=== PATIENT | male | born 1955 | race Caucasian/White ===

== ENCOUNTER → 2016-05-29 | Outpatient (CLI) | payer OTHER ==
[~2016-05-29] MED LIST: ACET325T33 PO; FAMO-18 PO; LISI10TA2 PO; MEVA40 PO; NIT4 SL; calcium
== END | disposition home or self-care (01) ==
LOC: MERGE 09:56 → HKI 09:56
PROVIDERS: ATTEND Orthopaedic Surgery
DX: Z01.818 Encounter for other preprocedural examination (principal); M17.0 Bilateral primary osteoarthritis of knee; I10 Essential (primary) hypertension; E78.5 Hyperlipidemia, unspecified
CPT/HCPCS: G0463

== ENCOUNTER → 2016-06-01 | Outpatient (CLI) | payer OTHER ==
[~2016-06-01] MED LIST changes: +ASPI325T32 PO; +GABA100C PO; +HYDR-905 PO; +METO25TA7 PO; +PANT40TA4 PO; +TRAM50TA2 PO
--- NOTE | 2016-06-01 14:51 | RADRPT ---
PROCEDURE: Limited x-ray of both lower extremities. CLINICAL INDICATION: Bilateral leg pain. TECHNIQUE: Single frontal view of both lower extremities was obtained from the hips to the calves. COMPARISON: None. FINDINGS: There are mild to moderate degenerative changes of the hips with osteophytes and joint space narrowi ng. There are severe degenerative changes of both knees. IMPRESSION: 1. Mild to moderate degenerative changes of the hips. 2. Severe degenerative changes of both knees. RPTAT: QQ .Oswaldo Cole MD, Date Time Electronically viewed and signed by .Oswaldo Cole MD, on 06/01/2016 14:50 .R/
== END | disposition home or self-care (01) ==
LOC: MERGE 08:00 → HKI 13:07
PROVIDERS: ATTEND Orthopaedic Surgery
DX: M79.604 Pain in right leg (principal); M79.605 Pain in left leg
CPT/HCPCS: 77073

== ENCOUNTER 2016-06-09 09:30 | Inpatient (IN) | payer OTHER ==
[2016-05-29 13:11] VITALS: BMI 30.1
[2016-06-08 11:16] VITALS: BMI 30.8
[~2016-06-09] VITALS: Ht 165.1 cm; Wt 82.0 kg
[~2016-06-09 09:30] MED LIST changes: -ASPI325T32 PO; +BUPIVACAINE LIPOSOME/PF 266 MG/20 ML VIAL INFIL SCH; +CEFAZOLIN 2GM/50 ML (PMX) 50 ML X1 BEFORE INCISION IVPB ONE; +CELECOXIB 400 MG PO X1 DOSE PO ONE; +EXPAREL NOTE (BUPIVICAINE LIPOSOMAL) XX SCH; -GABA100C PO; -HYDR-905 PO; +LACTATED RINGER'S 1,000 ML IV ONE; -METO25TA7 PO; +PAIN COCKTAIL-CEFUROXIME IRR SCH; -PANT40TA4 PO; +PREGABALIN 300 MG PO X1 PO ONE; -TRAM50TA2 PO; +TRANEXAMIC ACID 820 MG in SOD CHLORIDE 0.9% 100 ML IVPB SCH; +TRANEXAMIC ACID 820 MG in SOD CHLORIDE 0.9% 91.8 ML IV ONE; +oxyCODONE (CR) 10 MG TAB [oxyCONTIN] X1 DOSE PO ONE; +traMADOL 50 MG TAB X 1 DOSE PO ONE
[2016-06-16] VITALS (19 sets, daily range): BP systolic 102–169; BP diastolic 45–84; PULSE 55–88; RESP 14–18; Ht 165.1 cm; Wt 82.0 kg
[2016-06-16] MEDS ORDERED: EXPAREL NOTE (BUPIVICAINE LIPOSOMAL) XX SCH (06:00)
[2016-06-16] MEDS ORDERED: oxyCODONE (CR) 10 MG TAB [oxyCONTIN] X1 DOSE PO SCH (06:00)
[2016-06-16] MEDS ORDERED: BUPIVACAINE LIPOSOME/PF 266 MG/20 ML VIAL INFIL SCH (06:00)
[2016-06-16] MEDS ORDERED: PREGABALIN 300 MG PO X1 PO SCH (06:00)
[2016-06-16] MEDS ORDERED: LACTATED RINGER'S 1,000 ML IV SCH (06:00)
[2016-06-16] MEDS ORDERED: traMADOL 50 MG TAB X 1 DOSE PO SCH (06:00)
[2016-06-16] MEDS ORDERED: PAIN COCKTAIL-CEFUROXIME IRR SCH ×7 (06:00)
[2016-06-16] MEDS ORDERED: TRANEXAMIC ACID 840 MG in SOD CHLORIDE 0.9% 100 ML IVPB SCH (06:00)
[2016-06-16] MEDS ORDERED: SOD CHLORIDE 0.9% IV SCH (06:00)
[2016-06-16] MEDS ORDERED: TRANEXAMIC ACID IV SCH (06:00)
[2016-06-16] MEDS ORDERED: CELECOXIB 400 MG PO X1 DOSE PO SCH (06:00)
[2016-06-16] MEDS ORDERED: CEFAZOLIN 2GM/50 ML (PMX) 50 ML X1 BEFORE INCISION IVPB SCH (06:00)
[2016-06-16] MEDS ORDERED: ETOMIDATE 20 MG INJ ONE (07:00)
--- NOTE | 2016-06-16 07:43 | PREOPHP ---
DATE OF ADMISSION: 06/16/2016 REASON FOR ADMISSION: The patient is scheduled to have surgery on his right knee for a total right knee arthroplasty. PREOPERATIVE VITAL SIGNS: Blood pressure 164/81, pulse 57, respirations 12, temperature 99.0. The patient's weight is 185.90 pounds. REVIEW OF SYSTEMS: MUSCULOSKELETAL: The patient upon presentation has no physical complaint with the exception of ongo ing right knee pain and swelling. CARDIOVASCULAR: Negative for any complaint. RESPIRATORY: Negative for any complaint. GASTROINTESTINAL: Negative for any complaint. PHYSICAL EXAMINATION: EYES: The patient has bilateral cataracts. MOUTH: No erythema, no exudate present. NECK: Supple without any lymphadenopathy. No JVD. LUNGS: Clear anteriorly and posteriorly. HEART: Regular rate and rhythm with S1, S2 without any gallop or murmur. ABDOMEN: Flat, nontender. No organomegaly or tenderness. EXTREMITIES: He has no peripheral edema. MUSCULOSKELETAL: He has right knee tenderness with moderate pain with range of motion. LABORATORY: The patient is awaiting lab results for CBC, BMP, PT, PTT, sedimentation rate and EKG. ASSESSMENT: Chronic right knee pain. PLAN: The patient is scheduled for a right knee total arthroplasty. At this time, patient is clear ed for surgery pending patient's lab results which were drawn on 06/02/2016. As noted, this patient is scheduled to have surgery to be performed by Dr. Pantera Al. Dictated By: PANTERA HOLDER/WILLIE Conf#: [id number] DID#: [id number]
[2016-06-16] MEDS ORDERED: POLYMYXIN B 500000 UNIT INJ ONE (15:09)
[2016-06-16] MEDS ORDERED: SODIUM CL BACTERIOSTATIC 30 ML INJ ONE (15:09)
[2016-06-16] MEDS ORDERED: VANCOMYCIN 1 GM INJ ONE (15:09)
[2016-06-16] MEDS ORDERED: GLYCOPYRROLATE 0.4 MG INJ ONE (15:11)
[2016-06-16] MEDS ORDERED: FENTAnyl 50 MCG/ML VIAL ONE (15:11)
[2016-06-16] MEDS ORDERED: LIDOCAINE 100 MG SYRINGE ONE (15:11)
[2016-06-16] MEDS ORDERED: MIDAZOLAM 1 MG/ML 2 ML INJ ONE (15:11)
[2016-06-16] MEDS ORDERED: NEOSTIGMINE 3 MG/3 ML SYRINGE ONE (15:11)
[2016-06-16] MEDS ORDERED: ROCURONIUM 50 MG INJ ONE (15:11)
[2016-06-16] MEDS ORDERED: PROPOFOL 100 ML ONE (15:11)
[2016-06-16] MEDS ORDERED: ONDANSETRON 4 MG INJ ONE (15:11)
[2016-06-16] MEDS ORDERED: DEXAMETHASONE 4 MG/ML 1 ML INJ ONE (15:13)
[2016-06-16] MEDS ORDERED: METO25TA7 PO (15:19)
--- NOTE | 2016-06-16 16:12 | HPN ---
Date/Time of Note Date/Time of Note DATE: 06/16/16 TIME: 16:11 Interval H&P Admission Note Pt. seen H&P reviewed: No system changes No change from H&P on 06/02/16 by Donis Jarrett ERIK N. MD Jun 16, 2016 16:12
[2016-06-16] MEDS ORDERED: TRIMETHOBENZAMIDE 100 MG/ML VIAL IM PRN (17:00)
[2016-06-16] MEDS ORDERED: HYDROmorphONE (0.2 MG/ML) 10ML SYG IV PRN ×3 (17:00)
[2016-06-16] MEDS ORDERED: DIPHENHYDRAMINE 50 MG INJ IV PRN (17:00)
[2016-06-16] MEDS ORDERED: MEPERIDINE 25 MG INJ IV PRN (17:00)
[2016-06-16] MEDS ORDERED: LABETALOL HCL 20MG INJ IV PRN (17:00)
[2016-06-16] MEDS ORDERED: EPHEDrine SULFATE 50 MG/5 ML SYG IV PRN (17:00)
[2016-06-16] MEDS ORDERED: ONDANSETRON 4 MG INJ IV PRN ×2 (17:00→19:30)
[2016-06-16] MEDS ORDERED: FENTAnyl 50 MCG/ML VIAL IV PRN ×3 (17:00)
[2016-06-16] MEDS ORDERED: hydrALAzine 20 MG INJ IV PRN (17:00)
[2016-06-16] MEDS ORDERED: MIDAZOLAM 1 MG/ML 2 ML INJ IV PRN (17:00)
[2016-06-16] MEDS ORDERED: BACITRACIN 50000 UNITS INJ ONE (17:03)
--- NOTE | 2016-06-16 19:16 | OPPN ---
Date/Time of Note Date/Time of Note DATE: 06/16/16 TIME: 19:14 Operative/Procedure Note Dictation # [id number] Pre-Operative Diagnosis Right Knee OA Post-Operative Diagnosis Same Procedure Right TKA Surgeon: POOL ARZOLA MD Sales Department Supervisor: ORVILLE CUMMINS PA-C Anesthesiologist: Cameron Concepcion M.D. Findings Severe OA Blood Usage/Administration None Implants/Grafts Depuy Attune TKA Estimated blood loss: 50 - 100 ml's Drains Hemovac x 1 Specimens Bone and soft tissue Complications: None Anesthesia type: spinal POOL ARZOLA MD Jun 16, 2016 19:16
--- NOTE | 2016-06-16 19:22 | PN ---
Date/Time of Note Date/Time of Note DATE: 06/16/16 TIME: 19:19 Assessment/Plan Lines/Catheters IV Catheter Type (from Nrsg): Peripheral IV Assessment/Plan Assessment/Plan Stable in PACU, s/p right TKA -cont abx -pain meds -ASA/SCDs for DVT prophylaxis -OOB with PT -check AM labs -monitor drain -d/c perez in AM XR of the right knee is pending at this time Subjective 24 Hr Interval Summary Doing well in PACU. Denies pain. Moving all extremities. Exam/Review of Systems Vital Signs Vitals Vital Signs Date Time Temp Pulse Resp B/P Pulse Ox O2 Delivery O2 Flow Rate FiO2 06/16/16 19:17 98.5 06/16/16 15:25 58 18 169/84 98 Room Air Exam Free Text/Dictation Dressing dry Incision clean, dry, and intact without redness or drainage Thigh soft 5/5 Quadriceps, Tibialis Anterior, EHL, Gastroc, Soleus, Peroneals Normal sensation Palpable DT/PT, CR <2 sec No distal edema ORVILLE CUMMINS PA-C Jun 16, 2016 19:22
[2016-06-16] MEDS ORDERED: HYDROmorphONE 1 MG/ML SYG IV PRN (19:30)
[2016-06-16] MEDS ORDERED: NACL 0.9% 3 ML SYG IV SCH (19:30)
[2016-06-16] MEDS ORDERED: oxyCODONE 5 MG TAB PO PRN ×2 (19:30)
[2016-06-16] MEDS ORDERED: NA PHOSPHATE/BIPHOS 133 ML ENEMA PR PRN (19:30)
[2016-06-16] MEDS ORDERED: ASPIRIN (EC) 325 MG TAB PO ONE (19:30)
[2016-06-16] MEDS ORDERED: MAGNESIUM HYDROXIDE 30ML CUP PO PRN (19:30)
[2016-06-16] MEDS ORDERED: DIPHENHYDRAMINE 25 MG CAP PO PRN (19:30)
[2016-06-16] MEDS ORDERED: BISACODYL 10 MG SUPP PR PRN (19:30)
[2016-06-16] MEDS: CEFAZOLIN 2 GM/50 ML (PMX) 50 ML IVPB SCH (19:37)
[2016-06-16 19:50] LABS: POTASSIUM 4.5 mmol/L (3.5-5.1)
[2016-06-16 19:54] LABS: CALCIUM 7.2 mg/dl (8.4-10.2); CREATININE 0.87 mg/dl (0.61-1.24)
[2016-06-16 20:02] LABS: HEMATOCRIT 36.9 % (42.0-52.0); HEMOGLOBIN 12.5 g/dl (14.0-18.0)
--- NOTE | 2016-06-16 20:03 | OPR ---
DATE OF OPERATION: 06/16/2016 DATE: 06/16/2016 PREOPERATIVE DIAGNOSIS: Right knee osteoarthritis. POSTOPERATIVE DIAGNOSIS: Right knee osteoarthritis. OPERATION PERFORMED: Right total knee arthroplasty. SURGEON: Pool Al MD TREE FELLER: ZEKE Smith COMPONENTS USED: DePuy Attune size 8 femoral component, size 7 tibia, 5 mm polyethylene insert, and a 35 patella button. ANESTHESIA: Spinal, plus general endotracheal intubation, plus periarticular injection. ANESTHESIOLOGIST: Cameron Concepcion MD TOURNIQUET TIME: 77 minutes. ESTIMATED BLOOD LOSS: 50 mL. INTRAVENOUS FLUIDS: Crystalloid 3 L. SPECIMENS: Bone and soft tissue. DRAINS: Hemovac x1. COMPLICATIONS: None. DISPOSITION: Patient tolerated the procedure well and was taken to the recovery room in stable [facility]. INDICATIONS: The patient is a 60-year-old gentleman who has had progressive worsening pain in the r ight knee with radiographic evidence of severe osteoarthritis, with a marked varus deformity. He snider s failed nonsurgical means of treatment to control his pain, including activity modifications, pain medications, intra-articular injections and ambulatory assist devices. Despite these measures, he h as had worsening pain and I felt he would benefit from a total knee arthroplasty. I felt the patient would benefit from a total knee arthroplasty. The risks, benefits, and alternatives of the procedure were explained in detail to the patient. I ex plained the risks of the surgery to include but not be limited to, bleeding and possible need for bl ood transfusion; infection; pain; stiffness; neurovascular injury with possible numbness, weakness, and/or paralysis anywhere from the knee down to the toes; fracture; instability; dislocation; wear a nd/or loosening of the prosthesis and possible need for future revision; blood clots; pulmonary embo lism; and anesthetic complications such as heart attack, stroke, GI bleed, pneumonia, and/or . Ample time was allowed for the patient to ask questions, all of which were addressed and answered. T he patient understood the risks involved and wished to proceed. Informed consent was signed prior to the procedure. PROCEDURE: The patient's right knee was initialed with a marking pen in the preoperative area to id entify the correct operative site. The patient was brought to the operating room and transferred fro [facility] to the operating table where a spinal anesthetic was administered. The patient was then anesthetized and intubated. A Powell catheter was placed. A timeout was performed to confir m that the right leg was the correct operative site. The patient was given 2 g of Ancef within one h our prior to the procedure. A tourniquet was placed on the operative proximal thigh. The operative k nee and lower extremity were prepped and draped in the usual sterile fashion. The operative lower ex tremity was elevated and exsanguinated with an Esmarch tourniquet. The proximal thigh tourniquet was inflated to 300 mmHg. The knee was flexed. A midline incision was made and carried down through the subcutaneous tissue an d fat with sharp dissection. Limited medial and lateral flaps were raised. A median parapatellar art hrotomy approach was performed. Synovial fluid was normal in color and consistency. The patella was everted and the knee flexed. There were severe tricompartmental osteoarthritic changes noted. A medi al release was performed at the joint line to the midcoronal plane. The ACL and PCL and remnants of the menisci were excised. The stepped drill was used to open up the femoral canal which was irrigate d and sucked dry. The intramedullary guide arsalan was passed up the femur, and the distal cutting block was pinned into place for a 6-degree valgus cut, taking 10 mm of bone off distally. The oscillating saw was used to make the cut. The tibia was subluxed anteriorly. The tibial cutoff jig was placed over the center of the talus dis tally and over the junction of the medial and middle third of the tibial tubercle proximally. The gu sukhwinder was pinned into place and the oscillating saw was used to make the cut. The tibia was sized. The extension gap was checked and accommodated a 5-mm spacer block with the knee in full extension. The re was no varus or valgus instability. At this point, the femur was sized with the posterior referencing guide. Two holes were drilled in 3 degrees of external rotation. The two holes were in line with the transepicondylar axis, perpendicu lar to [place]'s line, and in line with the tibial cutoff jig brought up with the knee flexed 90 d egrees and tensed with 2 lamina spreaders, suggesting the femoral rotation was correct. The four-in- one cutting block was pinned into place. The anterior and posterior cuts and chamfer cuts were made with the oscillating saw. The flexion gap was checked and accommodated the 5-mm spacer block at 90 d egrees. There was no varus or valgus instability, suggesting the flexion and extension gaps were now equal. The central box was cut out on the femur. The tibia was drilled and punched in proper rotation. Tria l components were placed into position with a trial insert. The patella was cut from 27 mm down to 1 6 mm and sized. Three holes were drilled and the trial button placed in position. With all the trial s now in place, the knee was taken through range of motion and came to full extension as evidenced b y the fact that with the foot on my abdomen and axial loading, there was no tendency for the knee to flex. The knee was able to be flexed to 125 degrees with good patellar tracking with no lateral til t or subluxation. At this point, I was satisfied with the overall range of motion, stability, and pa tellar tracking. The trials were removed. The real components were opened. Two bags of cement were mixed, one with an d one without premixed antibiotic. The knee was irrigated with antibiotic saline and sucked dry. Onc e the cement was in a doughy stage, the real components were cemented into place. The knee was held in full extension, and the patellar component was held with a patellar clamp. All excess cement was removed with curettes. As the cement was hardening, the synovial/capsular layer was infiltrated with a mixture of 150 mg of 0.5% Bupivacaine, 8 mg of Duramorph, 300 mcg of epinephrine, 30 mg of [place] l, 100 mcg of clonidine, 750 mg of cefuroxime and 86 mL of normal saline, followed by an injection o f 266 mg of liposomal Bupivacaine. A Hemovac drain was placed in the deep portion of the wound and brought out the anterolateral thigh. Once the cement was completely hardened, the trial liner was removed, and the real insert was opene d. The tourniquet was let down, and there was good hemostasis. The knee was then irrigated with a mi xture of betadine/saline and then antibiotic saline with pulsatile lavage. The real insert was impac amanda into the tibia and reduced onto to the femur. The arthrotomy was closed with a few interrupted #1 Ethibond in a [id number] fashion, and then closed in a watertight fashion with a running #2 Stratafix suture. Knee flexion was checked against gravity and came to 125 degrees. The subcutaneous layer was irrigated and closed with 2-0 Stratafix, and then 3-0 Stratafix and then Prineo Dermabond on the skin. The wound was covered with an occlusi ve dressing, and secured with cast padding and a bias dressing. The drain was secured with 3-0 nylon . The sponge and needle counts were correct at the end of the case. The patient was then awakened, ext ubated, and taken to the recovery room in stable condition. Dictated By: POOL HOLDER/NTS Conf#: [id number] DID#: [id number]
[2016-06-16] MEDS: PREGABALIN 25 MG CAP PO SCH (21:51)
[2016-06-16] MEDS: DOCUSATE SODIUM 100 MG CAP PO SCH (21:51)
[2016-06-16] MEDS: LACTATED RINGER'S 1,000 ML IV SCH (21:52)
--- NOTE | 2016-06-16 23:11 | RADRPT ---
PROCEDURE: Right knee radiographs. CLINICAL INDICATION: Right knee pain. Postop. TECHNIQUE: Two views. Frontal and lateral. COMPARISON: 06/01/2016. FINDINGS: There is no fracture or dislocation. Anterior surgical drain is noted. There is a total right knee arthroplasty which appears satisfactory. There is no lytic or blastic lesion. There is no joint effusion. IMPRESSION: 1. Satisfactory postoperative appearance of the right knee. RPTAT: QQ .Oswaldo Cole MD, MD Date Time Electronically viewed and signed by .Oswaldo Cole MD, on 06/16/2016 23:11 .R/
[2016-06-16] MEDS: ACETAMINOPHEN 1000MG/100ML IV 100 ML IVPB SCH (23:55)
[2016-06-17 00:10] VITALS: BP 149/69
[2016-06-17] MEDS: LACTATED RINGER'S 1,000 ML IV SCH ×3 (03:14→19:14)
[2016-06-17] MEDS: CEFAZOLIN 2 GM/50 ML (PMX) 50 ML IVPB SCH ×2 (03:50→12:06)
[2016-06-17] MEDS: PANTOPRAZOLE (EC) 40 MG TAB PO SCH ×2 (05:06→18:22)
[2016-06-17] MEDS: traMADol 50 MG TAB PO SCH ×4 (05:06→18:22)
[2016-06-17] MEDS: ACETAMINOPHEN 1000MG/100ML IV 100 ML IVPB SCH ×3 (05:06→18:22)
[2016-06-17 05:13] LABS: POTASSIUM 4.6 mmol/L (3.5-5.1)
[2016-06-17 05:16] LABS: CREATININE 0.75 mg/dl (0.61-1.24)
[2016-06-17 05:17] LABS: CALCIUM 7.2 mg/dl (8.4-10.2); HEMATOCRIT 35.1 % (42.0-52.0); HEMOGLOBIN 12.2 g/dl (14.0-18.0)
--- NOTE | 2016-06-17 05:52 | CONS ---
Date/Time of Note Date/Time of Note DATE: 06/17/16 TIME: 05:41 Assessment/Plan Assessment/Plan Additional Assessment/Plan IMPRESSION 1. Right Knee OA s/p TKA 2. History of Hypertension. 3. Leukocytosis: likely stress induced. monitor closely PLAN Pain mgmt Cont home meds with adjustment as needed. Toprol XL with parameters given bradycardia f/u ortho recs Consultation Date/Type/Reason Admit Date/Time Jun 16, 2016 at 14:14 Hx of Present Illness This is a 60 yo male with hx of HTN, ?GERD and Right knee OA who is admitted for total knee arthroplasty, which he underwent already. Consult was placed for medical mgmt. except for occasional pain, pt does not have any complaints. He denied CP, SOB, f/c, N/V. . Past Medical History Medical History: hypertension, other (Right knee OA) Past Surgical History Past Surgical Hx: other (Left knee meniscus tear. Right 3rd and 4th finger amputation) Social History Alcohol Use: none Smoking Status: Never smoker Drug Use: none Exam/Review of Systems Vital Signs Vitals Vital Signs Date Time Temp Pulse Resp B/P Pulse Ox O2 Delivery O2 Flow Rate FiO2 06/17/16 00:10 98.2 55 149/69 06/16/16 23:00 16 100 Nasal Cannula 2.0 Intake and Output 06/16/16 06/16/16 06/17/16 15:00 23:00 07:00 Intake Total 3000 ml Output Total 320 ml Balance 2680 ml Exam Constitutional: alert, oriented, well developed Head: normocephalic Eyes: EOMI, PERRL Respiratory: clear to auscultation, normal air movement Cardiovascular: nl pulses, other (bradycardic with regular rhythm) Gastrointestinal: non-tender, soft Extremities: other (right LE covered. Old amputation of right 3rd and 4th finger) Results Result Diagram: 06/16/16 19306/16/161929 Results 24 hrs Laboratory Tests Test 06/16/16 19:30 Anion Gap 16 Blood Urea Nitrogen 12 Calcium Level 7.2 L Carbon Dioxide Level 25 Chloride Level 102 Creatinine 0.87 Glucose Level 147 Hematocrit 36.9 L Hemoglobin 12.5 L Potassium Level 4.5 Sodium Level 138 Medications Medications Current Medications Miscellaneous Information 1 ea NOTE XX ; Start 06/16/16 at 06:00; Stop 06/19/16 at 05:59 Lisinopril (Zestril) 10 mg DAILY PO ; Start 06/17/16 at 09:00 Metoprolol Succinate 25 mg 25 mg DAILY PO ; Start 06/17/16 at 09:00 Lactated Ringer's (Lr) 1,000 ml @ 125 mls/hr Q8H IV Last administered on 21:52; Admin Dose 125 MLS/HR; Start 06/16/16 at 19:14 Celecoxib 200 mg 200 mg DAILY PO ; Start 06/17/16 at 09:00 Acetaminophen (Ofirmev 1000mg/ 100ml Iv) 100 ml @ 400 mls/hr Q6 IVPB Last administered on 06/17/16 05:06; Admin Dose 400 MLS/HR; Start 06/17/16 at 00:00; Stop 06/17/16 at 23:59 Tramadol HCl (Ultram) 50 mg Q6 PO Last administered on 06/17/16 05:06; Admin Dose 50 MG; Start 06/16/16 at 18:00; Stop 06/19/16 at 17:59 Oxycodone HCl (Roxicodone) 5 mg Q4H PRN PO PAIN LEVEL 1-3; Start 06/16/16 at 19 :30 Oxycodone HCl (Roxicodone) 10 mg Q4H PRN PO PAIN LEVEL 4-7; Start 06/16/16 at 19:30 Hydromorphone HCl 1 mg 1 mg Q3H PRN IV PAIN LEVEL 8-10; Start 06/16/16 at 19:30 Cefazolin Sodium/ Dextrose (Ancef 2 Gm/50 ml (Pmx)) 50 ml @ 100 mls/hr Q8H IVPB Last administered on 06/17/16 03:50; Admin Dose 100 MLS/HR; Start at 19:30; Stop 06/17/16 at 11:59 Ondansetron HCl (Zofran Inj) 4 mg Q6H PRN IV NAUSEA AND/OR VOMITING; Start at 19:30 Bisacodyl (Dulcolax Supp) 10 mg Q12H PRN PA CONSTIPATION; Start 06/16/16 at 19: 30 Magnesium Hydroxide (Milk Of Mag) 30 ml BID PRN PO CONSTIPATION; Start 1/31/ 17 at 19:30 Sodium Biphosphate/ Sodium Phosphate (Fleet Enema) 133 ml DAILY PRN PA CONSTIPATION; Start 06/16/16 at 19:30 Docusate Sodium (Colace) 100 mg BID PO Last administered on 06/16/16 21:51; Admin Dose 100 MG; Start 06/16/16 at 21:00 Diphenhydramine HCl (Benadryl) 25 mg Q6H PRN PO PRURITUS; Start 06/16/16 at 19: 30 Aspirin (Ecotrin) 325 mg BID PO ; Start 06/17/16 at 09:00 Pantoprazole (Protonix Tab) 40 mg BID@06,18 PO Last administered on 06/17/16 05 :06; Admin Dose 40 MG; Start 06/17/16 at 06:00 Pregabalin (Lyrica) 50 mg BID PO Last administered on 06/16/16 21:51; Admin Dose 50 MG; Start 06/16/16 at 21:00 JOSELINE ROSARIO MD Jun 17, 2016 05:51
[2016-06-17 06:56] LABS: ADD UMIC NO; URINE BILIRUBIN (Dip) NEGATIVE (NEGATIVE); URINE BLOOD (Dip) NEGATIVE (NEGATIVE); URINE COLOR LT. YELLOW (YELLOW); URINE GLUCOSE (Dip) NEGATIVE (NEGATIVE); URINE KETONES (Dip) NEGATIVE (NEGATIVE); URINE LEUKOCYTE ESTERASE (Dip) NEGATIVE (NEGATIVE); URINE NITRITE (Dip) NEGATIVE (NEGATIVE); URINE TOTAL PROTEIN (Dip) NEGATIVE (NEGATIVE); URINE UROBILINOGEN (Dip) 0.2 E.U./dL (0.1-1.0)
[2016-06-17 08:06] VITALS: BP 102/62; RESP 18
[2016-06-17] MEDS: LISINOPRIL 10 MG TAB PO SCH ×2 (09:00→12:19)
[2016-06-17] MEDS: METOPROLOL (XL) 25 MG TAB PO SCH ×2 (09:00→12:20)
--- NOTE | 2016-06-17 09:05 | PN ---
Date/Time of Note Date/Time of Note DATE: 06/17/16 TIME: 09:04 Assessment/Plan Lines/Catheters IV Catheter Type (from Nrsg): Peripheral IV Powell in Place (from Nrsg): Yes Assessment/Plan Assessment/Plan Stable POD #1 s/p right TKA -d/c abx -pain meds -ASA/SCDs for DVT prophylaxis -OOB with PT -drain removed today -check AM labs -encourage incentive spirometry -d/c planning. Will likely go home tomorrow Subjective 24 Hr Interval Summary Doing well. No acute overnight events. Pain minimal. Moderate drainage output. Did not start PT yet. Exam/Review of Systems Vital Signs Vitals Vital Signs Date Time Temp Pulse Resp B/P Pulse Ox O2 Delivery O2 Flow Rate FiO2 06/17/16 08:06 97.9 56 18 102/62 97 06/16/16 23:00 Nasal Cannula 2.0 Intake and Output 06/16/16 06/16/16 06/17/16 15:00 23:00 07:00 Intake Total 3000 ml 880 ml Output Total 320 ml 2620 ml Balance 2680 ml -1740 ml Exam Free Text/Dictation Hemovac: 440cc Dressing dry Incision clean, dry, and intact without redness or drainage Thigh soft 5/5 Quadriceps, Tibialis Anterior, EHL, Gastroc, Soleus, Peroneals Normal sensation Palpable DT/PT, CR <2 sec No distal edema Results Result Diagram: 06/17/16 04306/17/16 043 ORVILLE CUMMINS PA-C Jun 17, 2016 09:05
[2016-06-17] MEDS: ASPIRIN (EC) 325 MG TAB PO SCH ×2 (09:09→20:35)
[2016-06-17] MEDS: CELECOXIB 200 MG CAP PO SCH (09:09)
[2016-06-17] MEDS: PREGABALIN 25 MG CAP PO SCH ×2 (09:09→20:35)
[2016-06-17] MEDS: DOCUSATE SODIUM 100 MG CAP PO SCH ×2 (09:09→20:35)
--- NOTE | 2016-06-17 15:43 | PDOCDIS ---
Discharge Instructions DIAGNOSIS Discharge Diagnosis: s/p right TKA CONDITION Patient Condition: Good HOME CARE INSTRUCTIONS: Diet Instructions: Regular ACTIVITY: Activity Restrictions: Slowly Increase Activity Rest between Activity Avoid heavy lifting Do not operate Machinery Do not operate Power Tool Avoid Heavy Housework Keep Limb Elevated FOLLOW UP/APPOINTMENTS Appointments follow up with Dr. Al on 06/26/16 OTHER ORDERS: Other Orders: S/P TKA Physical Therapy: Three times per week at home x 2 weeks WB STATUS: WBAT 1. Strengthening exercises for both upper and un-operated lower extremities. 2. Gait training with front wheeled walker 3. Active range of motion exercises to operative knee. 4. When not working on knee range of motion exercises, distal towel roll under operative ankle/distal calf to promote full extension. 5. DO NOT PUT ANYTHING BEHIND OPERATIVE KNEE!!! 6. Quadriceps and hamstring strengthening. 7. May switch to cane in contra lateral hand 6 weeks after surgery. 8. Physical Therapy can open case if nursing is not available. 9. Use Ice Machine as instructed from date of surgery while at rest 3X/day. 10. Patient requires mobile SCDs to reduce risk of developing DVT following TKA. Patient will use the mobile SCDs for 30 days postoperatively. Bathing assistance by home health aide twice weekly if Medicare patient. Occupational Therapy: Evaluation for assistive devices and ADL training. Wound Care: Keep incision dry & covered with Tegaderm until first visit with Dr. Al Anticoagulation Orders: Enteric Coated Aspirin 325 mg po bid x 6 weeks from date of surgery Follow-up:Call for an appointment with Dr. Al in 1 week after discharged from hospital at DME Orders: JACINTA, 3-in-1 Commode, Polar ice machine, Mobile SCDs ORVILLE CUMMINS PA-C Jun 17, 2016 15:43
[2016-06-17] MEDS ORDERED: HYDR-905 PO (15:45)
[2016-06-17] MEDS ORDERED: ASPI325T32 PO (15:45)
[2016-06-17] MEDS ORDERED: GABA100C PO (15:45)
[2016-06-17] MEDS ORDERED: TRAM50TA2 PO (15:45)
[2016-06-17] MEDS ORDERED: PANT40TA4 PO (15:45)
[2016-06-17 19:40] VITALS: BP 122/59; RESP 18
[2016-06-18] MEDS: LACTATED RINGER'S 1,000 ML IV SCH ×2 (03:14→11:14)
[2016-06-18] MEDS: PANTOPRAZOLE (EC) 40 MG TAB PO SCH (05:06)
[2016-06-18] MEDS: traMADol 50 MG TAB PO SCH ×3 (05:06→13:14)
[2016-06-18 05:15] LABS: HEMATOCRIT 30.8 % (42.0-52.0); HEMOGLOBIN 10.5 g/dl (14.0-18.0)
[2016-06-18 06:08] LABS: POTASSIUM 4.4 mmol/L (3.5-5.1)
[2016-06-18 06:10] LABS: CREATININE 0.88 mg/dl (0.61-1.24)
[2016-06-18 06:11] LABS: CALCIUM 7.3 mg/dl (8.4-10.2)
[2016-06-18 06:37] VITALS: BP 110/65; PULSE 58; RESP 18
[2016-06-18 07:44] VITALS: BP 124/58; RESP 18
[2016-06-18] MEDS: ASPIRIN (EC) 325 MG TAB PO SCH (10:17)
[2016-06-18] MEDS: DOCUSATE SODIUM 100 MG CAP PO SCH (10:17)
[2016-06-18] MEDS: CELECOXIB 200 MG CAP PO SCH (10:20)
[2016-06-18] MEDS: METOPROLOL (XL) 25 MG TAB PO SCH (10:20)
[2016-06-18] MEDS: LISINOPRIL 10 MG TAB PO SCH (10:21)
[2016-06-18] MEDS: PREGABALIN 25 MG CAP PO SCH (10:33)
--- NOTE | 2016-06-18 11:07 | PN ---
Date/Time of Note Date/Time of Note DATE: 06/18/16 TIME: 11:05 Assessment/Plan Lines/Catheters IV Catheter Type (from Nrsg): Saline Lock Powell in Place (from Nrsg): No Assessment/Plan Assessment/Plan Stable POD #2, s/p right TKA -pain meds -ASA/SCDs -OOB with PT -d/c home today -follow up in the office with Dr. Al on 06/26/16 Subjective 24 Hr Interval Summary Doing well. No acute overnight events. Denies significant pain. Would like to go home today. Exam/Review of Systems Vital Signs Vitals Vital Signs Date Time Temp Pulse Resp B/P Pulse Ox O2 Delivery O2 Flow Rate FiO2 06/18/16 07:44 98.2 60 18 124/58 94 06/18/16 06:37 Room Air 06/17/16 08:00 2.0 Intake and Output 06/17/16 06/17/16 06/18/16 15:00 23:00 07:00 Intake Total 1500 ml 3330 ml 800 ml Output Total 1300 ml 1380 ml Balance 1500 ml 2030 ml -580 ml Exam Free Text/Dictation Dressing dry Incision clean, dry, and intact without redness or drainage Thigh soft 5/5 Quadriceps, Tibialis Anterior, EHL, Gastroc, Soleus, Peroneals Normal sensation Palpable DT/PT, CR <2 sec No distal edema Results Result Diagram: 06/18/16 0425 06/18/16 0425 ORVILLE CUMMINS PA-C Jun 18, 2016 11:07
--- NOTE | 2016-06-19 08:45 | DS ---
DATE OF ADMISSION: 06/16/2016 DATE OF DISCHARGE: 06/18/2016 CONDITION ON DISCHARGE: Stable. ADMITTING DIAGNOSIS: Right knee osteoarthritis. DISCHARGE DIAGNOSIS: Status post right total knee arthroplasty. PROCEDURE PERFORMED: Right total knee arthroplasty. HOSPITAL COURSE: This is a 60-year-old male who was seen in the clinic initially complaining of rig ht knee pain. He had previously undergone conservative modalities unsuccessfully, and it was though t he would benefit from a right total knee arthroplasty. On 06/16/2016, the patient was admitted an d taken to the operating room where he underwent a right total knee arthroplasty. There were no int raoperative complications. The patient tolerated the procedure well. He was taken to the recovery room in stable condition. Pain was well controlled with oral pain medication. He was started on as pirin and SCDs for DVT prophylaxis. He remained hemodynamically stable and neurovascularly intact t hroughout his hospital stay. On postoperative day 1, he began physical therapy and continued to delilah e progress. On postoperative day 2, it was deemed that he was stable for discharge home. Prior to discharge, the incision was inspected and noted to be clean, dry, and intact. Dressing changes were done prior to the patient going home. LABORATORY ANALYSIS UPON DISCHARGE: Hemoglobin 10.5, hematocrit 30.8. Chemistry panel was within n ormal limits. DISCHARGE MEDICATIONS: 1. Tramadol 50 mg. 2. [place] 7.5/325 mg. 3. Aspirin 325 mg. 4. Protonix 40 mg. Additionally, the patient is to resume all his normal home medications. DISCHARGE INSTRUCTIONS: The patient will be discharged home in stable condition. He is to resume a normal diet. Activities include weightbearing as tolerated on the right lower extremity. He is to begin physical therapy with home health. He will be discharged with the medications noted above. Additionally, he is to resume all of his normal home medications. The patient is to call the office or return to the emergency room for any concerns including increased redness, swelling, drainage, f ever, or any concerns regarding the operation or site of incision. FOLLOWUP: The patient is to follow up with Dr. Al in the office on 06/26/2016. Dictated By: ORVILLE ALANIS for POOL MAZARIEGOS/WILLIE Conf#: [id number] [facility]#: [id number]
== END 2016-06-18 18:10 | disposition home or self-care (01) | DRG 470 ==
LOC: MERGE 12:54 → REC 06-16 14:14 → MS1 06-16 20:20
PROVIDERS: ADMIT Orthopaedic Surgery; ATTEND Orthopaedic Surgery
PROC: 0SRC0J9 Replacement of Right Knee Joint with Synthetic Substitute, Cemented, Open Approach (ICD-10-PCS; principal; 2016-06-16 16:30)
DX: M17.11 Unilateral primary osteoarthritis, right knee (principal); I10 Essential (primary) hypertension; D72.829 Elevated white blood cell count, unspecified; Z89.021 Acquired absence of right finger(s)
CPT/HCPCS: 73560; 80048; 81003; 85014; 85018; 86850; 86900; 86901; 86920; 87081; 87086; 88304; 88311; 97110; 97116; 97162; 97167; 97530; Z7610; C1776; C9290; J0131; J0171; J0690; J0697; J0735; J1100; J1170; J1885; J2001; J2250; J2274; J2405; J2710; J3010; J3370; J7120

== ENCOUNTER 2016-06-26 11:50 | Emergency (ER) | payer OTHER ==
[~2016-06-26] VITALS: Wt 81.8 kg
--- NOTE | 2016-06-26 11:56 | QN ---
Documentation Comment Patient chief complaint is for leg pain and he was sent to rule out DVT. The patient had a medical screening exam which is initiated. I ordered a right lower extremity DVT after discussion with my triage nurse regarding his symptoms. TATYANA CORONA MD Jun 26, 2016 11:56
--- NOTE | 2016-06-26 13:05 | RADRPT ---
PROCEDURE: Ultrasound of the right lower extremity venous system. CLINICAL INDICATION: Right leg pain and swelling, deep venous thrombosis TECHNIQUE: Bowen scale with and without compression, color doppler, spectral doppler of the venous system of the right lower extremity was performed. Venous augmentation maneuvers were utilized. COMPARISON: No prior studies are available for comparison. FINDINGS: Common femoral vein: Patent. Superficial femoral vein: Patent. Popliteal vein: Patent. Calf veins: Patent. No soft tissue abnormalities are identified. IMPRESSION: No evidence of a deep vein thrombosis within the right lower extremity. RPTAT: AADD .Jamie Lilly MD, MD Date Time Electronically viewed and signed by .Jamie Lilly MD, on 06/26/2016 13:05 .B/
--- NOTE | 2016-06-26 15:33 | ERD ---
ER Documentation Chief Complaint Date/Time DATE: 06/26/16 TIME: 15:28 Chief Complaint R LEG PAIN R/O DVT HPI Patient is a 60-year-old male with hypertension who presents with right-sided leg swelling. The patient had right-sided knee surgery on June 16 of this year. The patient has no fevers. The patient had right-sided leg swelling that started after surgery. The patient was seen by Dr. Schulz today and was sent to the ER for ultrasound to rule out DVT. There is no fevers. There is no warmth to touch. There is no pus from the wound. ROS All systems reviewed and are negative except as per history of present illness. Medications Home Meds Active Scripts Gabapentin* (Neurontin*) 100 Mg Capsule, 100 MG PO TID, #90 CAP Prov:ORVILLE CUMMINS PA-C 06/17/16 Hydrocodone/Acetaminophen ([place] 7.5-325 Tablet) 1 Each Tablet, 1 EACH PO Q6 Y for PAIN LEVEL 6-10, #60 TAB Prov:ORVILLE CUMMINS PA-C 06/17/16 Tramadol HCl (Tramadol HCl) 50 Mg Tablet, 50 MG PO Q6 for 30 Days, #60 TAB Prov:ORVILLE CUMMINS PA-C 06/17/16 Pantoprazole* (Pantoprazole*) 40 Mg Tablet., 40 MG PO BID@06,18 for 30 Days, # 60 Prov:ORVILLE CUMMINS PA-C 06/17/16 Aspirin (Aspir-Alyssia) 325 Mg Tablet., 325 MG PO BID for 42 Days, #84 Prov:ORVILLE CUMMINS PA-C 06/17/16 Reported Medications Metoprolol Succinate* (Toprol XL*) 25 Mg Tab.sr.24h, 25 MG PO DAILY, #30 TAB 06/16/16 [calcium] No Conflict Check, HS 12/24/14 Lisinopril* (Lisinopril*) 10 Mg Tablet, 10 MG PO DAILY, TAB 12/24/14 Allergies Allergies: Coded Allergies: No Known Allergy (Unverified , 06/16/16) PMhx/Soc History of Surgery: Yes (LEFT KNEE MENISCUS TEAR, R MIDDLE FINGER AND RING FINGER AMPUTATION, MEDINA. S) Anesthesia Reaction: No Hx Neurological Disorder: No Hx Respiratory Disorders: No Hx Cardiac Disorders: Yes (HTN) Hx Psychiatric Problems: No Hx Miscellaneous Medical Probl: Yes (HTN, leukocytosis, ?GERD) Hx Alcohol Use: No Hx Substance Use: No Hx Tobacco Use: No Smoking Status: Never smoker FmHx Family History: No diabetes Physical Exam Vitals Vital Signs Date Time Temp Pulse Resp B/P Pulse Ox O2 Delivery O2 Flow Rate FiO2 06/26/16 11:53 98.0 75 18 201/84 99 Physical Exam Const: No acute distress Head: Atraumatic Eyes: Normal Conjunctiva ENT: Normal External Ears, Nose and Mouth. Neck: Full range of motion..~ No meningismus. Resp: Clear to auscultation bilaterally Cardio: Regular rate and rhythm, no murmurs Abd: Soft, non tender, non distended. Normal bowel sounds Skin: Right knee incision is clean, dry, and intact Back: No midline or flank tenderness Ext: Right lower extremity edema Neur: Awake and alert Psych: Normal Mood and Affect Procedures/MDM Ultrasound negative for DVT per radiology. Patient is a 60-year-old male with hypertension who presents with right-sided leg swelling. The patient had a recent surgery. Ultrasound is negative for DVT. I spoke with Dr. Schulz to give him the results of the negative ultrasound. The patient will be discharged and can return for any worsening symptoms. There is no sign of infection at this time. I doubt DVT. The patient could return for any worsening symptoms. Departure Diagnosis: Primary Impression: Leg swelling Condition: Fair Patient Instructions: Peripheral Edema, Unilateral Referrals: POOL ARZOLA MD Additional Instructions: Specialist:Usted tiene vinicius condicin mdica que requiere que jovan a un especialista dentro de los prximos 1-2 doshi.POR FAVOR,CON PANDA SEGUIMIENTO DE PRIMARIA PHSICIAN refferal. SI USTED NO TIENE UN MDICO GENERAL Y / O USTED NO PUEDE PAGAR mira a un mdico,los siguientes jara RECURSOS sido suministrado a usted. ES PANDA RESPONSABILIDAD PARA SER VISTOS POR EL ESPECIALISTA: TATYANA CORONA MD Jun 26, 2016 15:33
== END 2016-06-26 13:58 | disposition home or self-care (01) ==
LOC: E/R 11:50
DX: R22.41 Localized swelling, mass and lump, right lower limb (principal); I10 Essential (primary) hypertension; Z79.82 Long term (current) use of aspirin
CPT/HCPCS: 93971

== ENCOUNTER → 2016-06-26 | Outpatient (CLI) | payer OTHER ==
[~2016-06-26] MED LIST changes: -ACET325T33 PO; +ASPI325T32 PO; -BUPIVACAINE LIPOSOME/PF 266 MG/20 ML VIAL INFIL SCH; -CEFAZOLIN 2GM/50 ML (PMX) 50 ML X1 BEFORE INCISION IVPB ONE; -CELECOXIB 400 MG PO X1 DOSE PO ONE; -EXPAREL NOTE (BUPIVICAINE LIPOSOMAL) XX SCH; -FAMO-18 PO; +GABA100C PO; +HYDR-905 PO; -LACTATED RINGER'S 1,000 ML IV ONE; +METO25TA7 PO; -MEVA40 PO; -NIT4 SL; -PAIN COCKTAIL-CEFUROXIME IRR SCH; +PANT40TA4 PO; -PREGABALIN 300 MG PO X1 PO ONE; +TRAM50TA2 PO; -TRANEXAMIC ACID 820 MG in SOD CHLORIDE 0.9% 100 ML IVPB SCH; -TRANEXAMIC ACID 820 MG in SOD CHLORIDE 0.9% 91.8 ML IV ONE; -oxyCODONE (CR) 10 MG TAB [oxyCONTIN] X1 DOSE PO ONE; -traMADOL 50 MG TAB X 1 DOSE PO ONE
--- NOTE | 2016-06-26 10:56 | RADRPT ---
PROCEDURE: XR Knee. CLINICAL INDICATION: Postop TECHNIQUE: AP and lateral views of the right knee are available for review. COMPARISON: 06/16/2016 FINDINGS: A cemented right total knee arthroplasty is present in near anatomic alignment without acute radiogr aphic abnormality. There is nonspecific distension of the suprapatellar recess. IMPRESSION: 1. Total right knee arthroplasty in near anatomic alignment without acute radiographic abnormality RPTAT: [facility] .Abram Tse MD, MD Date Time Electronically viewed and signed by .Abram Tse MD, MD on 06/26/2016 10:56 .d/
== END | disposition home or self-care (01) ==
LOC: MERGE 06-19 10:00 → HKI 11:10
PROVIDERS: ATTEND Orthopaedic Surgery
DX: Z47.1 Aftercare following joint replacement surgery (principal); M17.11 Unilateral primary osteoarthritis, right knee; Z96.651 Presence of right artificial knee joint
CPT/HCPCS: 73560; G0463

== ENCOUNTER → 2016-07-24 | Outpatient (CLI) | payer OTHER | END | disposition home or self-care (01) | LOC: HKI 09:17 | PROVIDERS: ATTEND Orthopaedic Surgery | DX: Z47.1 Aftercare following joint replacement surgery (principal); Z96.651 Presence of right artificial knee joint ==

== ENCOUNTER → 2016-09-25 | Outpatient (CLI) | payer OTHER ==
--- NOTE | 2016-09-25 13:51 | RADRPT ---
PROCEDURE: Right knee radiographs. CLINICAL INDICATION: Right knee pain. Postop. TECHNIQUE: Three views. Weight bearing. Frontal, lateral, and patellar view. COMPARISON: 06/26/2016. FINDINGS: There is no fracture or dislocation. The soft tissues are normal. There is a total right knee arthroplasty which appears satisfactory. There is no lytic or blastic lesion. There is no joint effusion. IMPRESSION: 1. Satisfactory postoperative appearance of the right knee. RPTAT: QQ .Oswaldo Cole MD, Date Time Electronically viewed and signed by .Oswaldo Cole MD, on 09/25/2016 13:50 .R/
== END | disposition home or self-care (01) ==
LOC: HKI 08:30
PROVIDERS: ATTEND Orthopaedic Surgery
DX: M25.562 Pain in left knee (principal); M17.12 Unilateral primary osteoarthritis, left knee; Z96.651 Presence of right artificial knee joint
CPT/HCPCS: 73562; G0463

== ENCOUNTER → 2017-01-21 | Outpatient (CLI) | payer OTHER ==
--- NOTE | 2017-01-21 22:38 | HKNOTE ---
DATE OF SERVICE: 01/21/2017 MAIN COMPLAINT: Left knee pain. HISTORY OF PRESENT ILLNESS: This is a 61-year-old male, who is complaining of left knee pain for the last several years. The pain has progressively been getting worse. It is interfering with his activities of daily living. He had difficulty ambulating. He has had previous left knee open meniscectomy, as well as ACL reconstruction. He does not use any assistive devices. He takes vdql-axk-ffboher medications for pain. The pain is constant and rated as 10/10. There are no alleviating factors. It is aggravated by standing and walking. PAST MEDICAL HISTORY: Hypertension and hyperlipidemia. MEDICATIONS: None. PAST SURGICAL HISTORY: Right total knee arthroplasty by Dr. Pantera Al on June 16, 2016. PHYSICAL EXAMINATION: 1. Antalgic gait. Left knee varus alignment, tender over the medial and lateral joint lines, 5-90 degrees range of motion. Stable to varus/valgus stress. Negative Bridget. Negative anterior drawer. Negative posterior drawer; 5/5 tibialis anterior, gastrocsoleus, quadriceps. Palpable pulses. There is a healed anterior incision. 2. Right knee. Healed anterior incision, 0-100 degrees range of motion. Stable to varus/valgus stress. Negative anterior/posterior drawer. IMAGIN. X-rays, left knee: There is tricompartmental osteoarthritis of the left knee. 2. X-rays, right knee. Three views of the right knee demonstrate that the prosthesis is in acceptable alignment. There are no fractures or dislocations. IMPRESSION: A 61-year-old male with left knee severe degenerative joint disease. PLAN: Patient has failed nonoperative management. We will request authorization for left total knee arthroplasty. He will return in 4 weeks for re-evaluation. Dictated By: Nataliia Raymundo MD /zeeshan/justen /Document#: [id number]
--- NOTE | 2017-01-22 11:22 | RADRPT ---
PROCEDURE: XR Knee. CLINICAL INDICATION: Right knee pain. Status post right knee replacement. Follow-up. TECHNIQUE: 3 views of the right knee are available for review. Study was performed with weightbear ing. COMPARISON: Right knee x-ray 09/25/2016 FINDINGS: Right knee prosthesis is identified in anatomic location. No acute fracture or dislocation is seen. No hardware loosening or failure is identified. No other abnormality is identified. IMPRESSION: 1. Right knee replacement in anatomic location. 2. No acute fracture or dislocation is seen. 3. Stable appearances compared to the prior study. RPTAT: HMJB .Randy Nazario MD, MD Date Time Electronically viewed and signed by .Randy Nazario MD, MD on 01/22/2017 11:22 .B/
--- NOTE | 2017-01-22 11:24 | RADRPT ---
PROCEDURE: XR Knee. CLINICAL INDICATION: Left knee pain TECHNIQUE: 4 views of the left knee are available for review. Study was performed with weightbeari ng. COMPARISON: Bilateral leg x-ray 06/01/2016 FINDINGS: Severe narrowing of the medial compartment of the left knee is seen. Severe narrowing of the latera l compartment of the left knee is seen. There is narrowing of the patellofemoral joint as well. Th ere is significant associated osteophyte formation as well. Findings are consistent with significan t osteoarthritic degenerative changes of the left knee. No acute fracture or dislocation is seen. No radiopaque foreign body is identified. Alignment remains anatomic. The appearances of the left k nee are slightly more advanced and more severe when compared to the older prior study. IMPRESSION: 1. Advanced and severe end-stage tricompartmental osteoarthritic degenerative changes of the left k nee. Severe narrowing of all compartments of the left knee is present. 2. No definite acute fracture or dislocation is seen. RPTAT: PP .Randy Nazario MD, Date Time Electronically viewed and signed by .Randy Nazario MD, on 01/22/2017 11:24 .B/
== END | disposition home or self-care (01) ==
LOC: HKI 14:56
PROVIDERS: ATTEND Orthopaedic Surgery Adult Reconstructive Orthopaedic Surgery
DX: M17.12 Unilateral primary osteoarthritis, left knee (principal); R26.89 Other abnormalities of gait and mobility
CPT/HCPCS: G0463

== ENCOUNTER → 2017-03-30 | Outpatient (CLI) | payer OTHER ==
[~2017-03-30] MED LIST changes: +ATOR40TA68 PO; +LISI20TA11 PO; +METO-335 PO; -METO25TA7 PO
--- NOTE | 2017-03-30 16:02 | HKNOTE ---
DATE OF SERVICE: 03/30/2017 CHIEF COMPLAINT: Preop left total knee arthroplasty. Mr. Sampson is here today for his preop evaluation. I discussed the risks associated with surgery, in cluding left total knee arthroplasty. The risks include, but are not limited to, infection, deep ve nous thrombosis, pulmonary embolism, damage to nerves, arteries and veins requiring repair or impair ing function, need for revision surgery, loosening of prosthesis, wear of prosthesis, heart attack, stroke, need for blood transfusion, risks associated with anesthesia and even . I explained to the patient that up to 20% of patients are unhappy with the results of total knee arthroplasty. In formed consent was obtained. All questions were answered to his satisfaction. He is scheduled for a left total knee arthroplasty at [facility] on 03/31/2017. Dictated By: WHITNEY JOSEPH/WILLIE Conf#: [id number] DID#: [id number]
== END | disposition home or self-care (01) ==
LOC: HKI 14:17
PROVIDERS: ATTEND Orthopaedic Surgery Adult Reconstructive Orthopaedic Surgery
DX: Z01.818 Encounter for other preprocedural examination (principal)
CPT/HCPCS: G0463

== ENCOUNTER 2017-03-31 05:57 | Inpatient (IN) | payer OTHER ==
[2017-03-31] VITALS (22 sets, daily range): BP systolic 115–144; BP diastolic 55–73; PULSE 54–78; RESP 12–20; Ht 165.1 cm; Wt 79.9 kg
[~2017-03-31] VITALS: Ht 165.1 cm; Wt 79.9 kg
[~2017-03-31 05:57] MED LIST changes: -ATOR40TA68 PO; -LISI20TA11 PO
[2017-03-31] MEDS ORDERED: TRANEXAMIC ACID IVPB ONE (06:45)
[2017-03-31] MEDS ORDERED: ONDANSETRON 4 MG INJ IV ONE (06:45)
[2017-03-31] MEDS ORDERED: DEXAMETHASONE 4 MG/ML 1 ML INJ IV ONE (06:45)
[2017-03-31] MEDS ORDERED: CELECOXIB 200 MG CAP PO ONE (06:45)
[2017-03-31] MEDS ORDERED: oxyCODONE (CR) 10 MG TAB [oxyCONTIN] PO ONE (06:45)
[2017-03-31] MEDS ORDERED: LACTATED RINGER'S 1,000 ML IV* SCH (06:45)
[2017-03-31] MEDS ORDERED: CEFAZOLIN 2 GM/50 ML (PMX) 50 ML IVPB ONE (06:45)
[2017-03-31] MEDS ORDERED: SOD CHLORIDE 0.9% IVPB ONE (06:45)
[2017-03-31] MEDS ORDERED: LANSOPRAZOLE 30 MG CAP PO ONE (06:45)
[2017-03-31] MEDS ORDERED: ACETAMINOPHEN 1000MG/100ML IV 100 ML IVPB ONE (06:45)
--- NOTE | 2017-03-31 06:55 | HPN ---
Date/Time of Note Date/Time of Note DATE: 03/31/17 TIME: 06:55 Interval H&P Admission Note Pt. seen H&P reviewed: No system changes PHYLLIS CUEVA PA-C Mar 31, 2017 06:55
[2017-03-31] MEDS ORDERED: POLYMYXIN/BACITRACIN 1L IRRIG ONE (06:56)
[2017-03-31] MEDS ORDERED: TRANEXAMIC ACID IRR SCH ×4 (07:00)
[2017-03-31] MEDS ORDERED: SOD CHLORIDE 0.9% IV SCH ×2 (07:00)
[2017-03-31] MEDS ORDERED: SOD CHLORIDE 0.9% IRR SCH ×4 (07:00)
[2017-03-31] MEDS ORDERED: TRANEXAMIC ACID IV SCH ×2 (07:00)
[2017-03-31] MEDS ORDERED: ATOR40TA68 PO (07:19)
[2017-03-31] MEDS ORDERED: LISI20TA11 PO (07:19)
[2017-03-31] MEDS ORDERED: MIDAZOLAM 1 MG/ML 2 ML INJ ONE (07:35)
[2017-03-31] MEDS ORDERED: morphine SULFATE/PF (10 MG/10 ML) INJ ONE (07:35)
--- NOTE | 2017-03-31 10:27 | SIPON ---
Date/Time of Note Date/Time of Note DATE: 03/31/17 TIME: 10:25 Operative Report Preoperative Diagnosis Left knee osteoarthritis Postoperative Diagnosis same Operation/Procedure Performed Left total knee arthroplasty Surgeon MD Keira escrow assistant Boo Prado Second assist: PHYLLIS CUEVA PA-C Anesthesia: general, spinal Estimated blood loss: 250 - 300 ml's Transfusion Required none Specimen resected bone Grafts/Implants [employer] Size 7 femur, Size 6 tibial baseplate, 35mm patella, 9mm posterior stabilized poly Complications none WHITNEY DUNN MD Mar 31, 2017 10:27
[2017-03-31] MEDS ORDERED: LIDOCAINE 2% (SDV) 5 ML INJ ONE (10:30)
[2017-03-31] MEDS ORDERED: ETOMIDATE 20 MG INJ ONE (10:30)
[2017-03-31] MEDS ORDERED: ROCURONIUM 50 MG INJ ONE (10:30)
[2017-03-31] MEDS ORDERED: ONDANSETRON 4 MG INJ ONE (10:30)
[2017-03-31] MEDS ORDERED: CEFAZOLIN 1 GM INJ ONE (10:49)
--- NOTE | 2017-03-31 10:55 | PDOCDIS ---
Discharge Instructions DIAGNOSIS Discharge Diagnosis Status post left total knee arthroplasty CONDITION Patient Condition: Good HOME CARE INSTRUCTIONS: Diet Instructions: Regular ACTIVITY: Activity Restrictions: Slowly Increase Activity Rest between Activity Avoid heavy lifting No Sexual Activity Do not Drive Do not operate Machinery Do not operate Power Tool Avoid Heavy Housework Keep Limb Elevated (Keep 2-3 pillows under the foot only. Do not have any pillows under the knee. May use ice while resting.) Weight Bearing (Weight-bear as tolerated with use of front wheeled walker.) Bathing Restrictions: Shower (Keep the surgical area clean and dry until seen postoperatively.) FOLLOW UP/APPOINTMENTS Follow-up Plan Follow-up in 10-14 days in outpatient clinic with Dr. Raymundo. PHYLLIS CUEVA PA-C Mar 31, 2017 10:55
[2017-03-31] MEDS ORDERED: HYDROmorphONE 0.2 MG/ML PCA IV PRN (11:00)
[2017-03-31] MEDS ORDERED: MEPERIDINE 25 MG INJ IV PRN (11:00)
[2017-03-31] MEDS ORDERED: LABETALOL HCL 20MG INJ IV PRN (11:00)
[2017-03-31] MEDS ORDERED: SENNA/DOCUSATE NA (8.6MG/50MG) TAB PO PRN (11:00)
[2017-03-31] MEDS ORDERED: FENTAnyl 50 MCG/ML VIAL IV PRN (11:00)
[2017-03-31] MEDS ORDERED: DIPHENHYDRAMINE 50 MG INJ IV PRN (11:00)
[2017-03-31] MEDS ORDERED: COUMADIN NOTE XX SCH (11:00)
[2017-03-31] MEDS ORDERED: HYDROmorphONE (0.2 MG/ML) 10ML SYG IV PRN ×2 (11:00)
[2017-03-31] MEDS ORDERED: MAGNESIUM HYDROXIDE 30ML CUP PO PRN (11:00)
[2017-03-31] MEDS ORDERED: KETOROLAC 15 MG INJ IV PRN (11:00)
[2017-03-31] MEDS ORDERED: DIPHENHYDRAMINE 50 MG INJ IM PRN (11:00)
[2017-03-31] MEDS ORDERED: ASPIRIN (EC) 325 MG TAB PO ONE (11:00)
[2017-03-31] MEDS ORDERED: ZOLPIDEM 5 MG TAB PO PRN (11:00)
[2017-03-31] MEDS ORDERED: DOCUSATE SODIUM 100 MG CAP PO ONE (11:00)
[2017-03-31] MEDS ORDERED: hydrALAzine 20 MG INJ IV PRN (11:00)
[2017-03-31] MEDS ORDERED: MEPERIDINE 10 MG/ML 30 ML PCA IV PRN (11:00)
[2017-03-31] MEDS ORDERED: BETHANECHOL 25 MG TAB PO PRN (11:00)
[2017-03-31] MEDS ORDERED: ONDANSETRON 4 MG INJ IV PRN (11:00)
[2017-03-31] MEDS ORDERED: BISACODYL 10 MG SUPP PR PRN (11:00)
[2017-03-31] MEDS ORDERED: NA PHOSPHATE/BIPHOS 133 ML ENEMA PR PRN (11:00)
[2017-03-31] MEDS ORDERED: oxyCODONE 5 MG TAB PO PRN ×2 (11:00)
[2017-03-31] MEDS ORDERED: NALOXONE (0.4 MG/ML) INJ IV PRN ×2 (11:00)
[2017-03-31] MEDS: ONDANSETRON 4 MG INJ IV SCH ×3 (11:38→23:00)
--- NOTE | 2017-03-31 11:45 | OPR ---
DATE OF OPERATION: 03/31/2017 SURGEON: Whitney Mejia. ASSISTANTS: 1. Boo Prado. 2. ZEKE Chun. PREOPERATIVE DIAGNOSIS: Left knee osteoarthritis. POSTOPERATIVE DIAGNOSIS: Left knee osteoarthritis. PROCEDURES PERFORMED: 1. Left total knee arthroplasty, CPT code 97009. 2. Computer-assisted surgical navigational procedure for total knee (CPT code 53690). ANESTHESIOLOGIST: Dr. Durand. ANESTHESIA: Spinal. ESTIMATED BLOOD LOSS: 300 mL. COMPLICATIONS: None. SPECIMENS: Resected bone. TOURNIQUET TIME: 90 minutes at 250 mmHg. DISPOSITION: To PACU in stable condition. IMPLANT USED: [employer] size 7 femur, size 6 tibial baseplate, 35 mm asymmetric patella, 9 mm posterior stabilized polyethylene. INDICATION FOR PROCEDURE: This is a 61-year-old male with endstage osteoarthritis of the left knee who had failed nonoperative management. Risks, benefits, and alternatives of surgical intervention were discussed with the patient and informed consent was obtained. The risks of surgery include, but are not limited to infection, deep venous thrombosis, pulmonary embolism, damage to neurovascular structures, heart attack , stroke, risks associated with anesthesia or loosening of the prosthesis, wear prosthesis, need for revision surgery, need for blood transfusion, risks associated with anesthesia and even . DESCRIPTION OF PROCEDURE: The patient was met in the preoperative suite and the correct operative site was confirmed and marked. She was then brought into operating room. After induction of spinal anesthesia, he was placed in the supine position on the operating room table. A tourniquet was applied to left upper thigh and left lower extremity was prepped and draped in the usual sterile fashion. Before starting, a timeout was taken to identify the correct operative site and confirm that preoperative antibiotics consisting of 2 grams of IV Ancef, along with 1 gram of tranexamic acid were administered. At this point, the left leg was then elevated and exsanguinated and tourniquet was then insufflated for the above noted time, a midline incision was made and a median parapatellar arthrotomy was then performed and lateral patellar retinacular ligaments were released and the patella was retracted laterally. The sleeve of tissue was released from the proximal medial tibia. The cruciate ligaments and the meniscus were excised along with the suprapatellar fat pad. At this point, the intramedullary arsalan was used and placed. The distal femoral cutting block was then placed. A 9.5 mm distal femur was then removed. The block was then used and the femur was sized to a size 7. The 4-in-1 cutting block was then pinned and anterior and posterior condylar cuts followed by the anterior and posterior chamfer cuts were then completed. At this point, the tibia was subluxed anteriorly using navigational OrthAlign to slope was set at 3 degrees with 0 degrees of varus and valgus. Two mm was resected off the medial tibial plateau and approximately 9 mm from the lateral tibial plateau. The gap checker/stocker was then used and noted to have tightness in extension. Additional 2 mm was then resected off the distal femur. At this point, the flexion, extension gaps were then equal with a 9 mm sizer. At this point, the femoral box cut was then performed, the tibia was subsequently subluxed anteriorly and sized to a size 6. The size 6 tibial tray was then pinned and the keel punch was performed. The patella was then sized to 22 mm and 8 mm was then resected leaving 14 mm of bone. The patella was sized to 35 mm and the 3 drill holes were then made for the patellar button. The trial components were replaced with a 9 mm polyethylene, and the knee was taken through range of motion and noted to full extension, with greater than 120 degrees of flexion. The knee was stable to varus valgus stress and had excellent patellar tracking. At this point, the trial components were removed. All bony surfaces were pulse lavaged and dried. The appropriate size components were then brought into the field and cemented with the removal of excess cement, and the knee was held in extension while the cement cured. The tourniquet was deflated. The tranexamic acid and antibiotics were redosed. Once the cement had cured, the trial polyethylene was removed and the appropriate size 9 mm posterior stabilized polyethylene was inserted. Hemostasis was obtained. Arthrotomy was closed using #1 Vicryl in interrupted gwnyav-fu-zzpaj fashion followed by closure of subcutaneous tissue with 2-0 Vicryl and skin with 3-0 Monocryl in subcuticular fashion with Steri-Strips and sterile dressing was applied followed by a cold pack and David wrap. The patient was awakened and taken to postoperative care unit in stable condition. POSTOPERATIVE CARE: Patient will be weightbearing as tolerated. He will work with physical therapy, he will receive 2 additional doses of IV Ancef. He will have SCDs along with aspirin 325 mg p.o. b.i.d. for 6 weeks. Upon discharge, he will follow up at the [facility] within 2 weeks postoperatively. Dictated By: WHITNEY DUNN MD SS/NTS Conf#: [id number] DID#: [id number] CC: WHITNEY DUNN MD;*EndCC* MTDD
--- NOTE | 2017-03-31 12:00 | RADRPT ---
PROCEDURE: XR Left Knee. CLINICAL INDICATION: Left knee pain. Postop. TECHNIQUE: Two views. Frontal and lateral. COMPARISON: 02/10/2017. FINDINGS: There is no fracture or dislocation. Gas is present in the soft tissues from the recent surgery. There is a total left knee arthroplasty which appears satisfactory. There is no lytic or blastic lesion. IMPRESSION: 1. Satisfactory postoperative appearance of the left knee. RPTAT: QQ .Oswaldo Cole MD, MD Date Time Electronically viewed and signed by .Oswaldo Cole MD, MD on 03/31/2017 11:59 .R/
--- NOTE | 2017-03-31 12:19 | CONS ---
Date/Time of Note Date/Time of Note DATE: 03/31/17 TIME: 12:10 Assessment/Plan Assessment/Plan Chief Complaint/Hosp Course 61 year old male with a past medical history of bilateral osteoarthritis, right knee arthroplasty, hypertension, hypercholesterolemia, who was brought electively for left knee arthroplasty. 1. Osteoarthritis, bilateral knee. -Status post total left knee arthroplasty 03/31/2017 -Postoperative diet, anticoagulation, antibiotics, pain control and weightbearing per surgery. 2. Essential hypertension. Stable. -Resume home medications 3. Hypercholesterolemia. -Resume statin and follow-up with a lipid panel in a.m. 4. History of right total knee arthroplasty in June 2016. DVT prophylaxis: SCDs and aspirin 325 mg twice daily per orthopedics Plan: Follow-up with surgery recommendations. Thank you for allowing us to partake in the care of this pleasant gentleman. If you have any question please call us at extension [phone]. Approximately 60 minutes was spent on this consultation. Patient was seen in collaboration with Dr. Mendez. Problems: Consultation Date/Type/Reason Admit Date/Time Mar 31, 2017 at 05:57 Type of Consultation: Internal medicine Reason for Consultation Medical management Referring Provider: WHITNEY DUNN MD Hx of Present Illness This is a 60-year-old male with a past medical history hypertension, hypercholesterolemia, bilateral osteoarthritis, right total knee arthroplasty, and left shoulder surgery who was brought to the hospital by orthopedic surgery team for elective left knee arthroplasty on 03/31/2017. Patient was seen postoperatively in room 420. He denied any chest pain, palpitation, shortness of breath, nausea, vomiting, abdominal pain, dizziness or other constitutional symptoms. Left knee surgical dressing dry and intact. Pain is minimal. There is no labs to review currently. A 12 point review of system was assessed and is negative other than what is mentioned in HPI. Past Medical History See HPI Past Surgical History See HPI Past Surgical Hx: other Social History Patient denied history of alcohol, smoking or illicit drug use. Smoking Status: Former smoker Exam/Review of Systems Vital Signs Vitals Vital Signs Date Time Temp Pulse Resp B/P Pulse Ox O2 Delivery O2 Flow Rate FiO2 03/31/17 11:47 78 14 122/69 98 Room Air CPAP 03/31/17 10:57 98.0 Exam General: Well developed,adequately built, not in any acute distress . HEENT: Normocephalic, Atraumatic, No laceration or hematoma; Eyes: PEERL, Conjunctiva clear, Anicteric sclera Neck: Supple without any lymphadenopathy, nontender, no JVD, no carotid bruits, trachea midline, no thyromegaly Cardiac: S1, S2 auscultated, regular rhythm and rate, no mumurs or gallop Pulmonary: Normal respiratory effort. Chest clear to auscultation bilaterally, no adventitious breath sounds GI: Abdomen normal to inspection. Soft, non tender, non- distended, no masses, no rebound tenderness or guarding. Bowel sounds active on all four quadrants Genitourinary: Deferred Extremities: Left leg with surgical site/dry and intact dressing. Partial right 3rd &4th digits. No cyanosis, clubbing, or edema. Pulses [2+] bilaterally. Full ROM on all four extremities. No focal weakness appreciated. Neurologic: Alert to person, place, time, and situation. Affect appropriate, intact sensation. Skin: Clean,dry, and intact. No ecchymosis, no rashes, or lesions Medications Medications Current Medications Ropivacaine 60 ml/ Morphine Sulfate 4 mg/Clonidine 100 mcg/ Epinephrine 0.3 mg/ Ketorolac Tromethamine 30 mg/Cefuroxime Sodium 750 mg/ Sodium Chloride 50 ml INTRA-OP INJ ; Start 03/31/17 at 16:30 Lactated Ringer's 1,000 ml @ 125 mls/hr Q8H IV* Last administered on t 06:51; Admin Dose 125 MLS/HR; Start 03/31/17 at 06:45; Stop 03/31/17 at 14:44 Sodium Chloride 100 ml/Tranexamic Acid 1633 mg POST-OP IV ; Start 03/31/17 at 07:00 Dextrose/Lactated Ringer's (D5-Lr) 1,000 ml @ 80 mls/hr [id number] IV ; Start at 12:00 Hydromorphone HCl (Dilaudid CLINICAL RESOURCE NURSE) Q4PCA PRN IV SEVERE PAIN 8-10; Start at 11:00; Stop 04/01/17 at 10:59 Meperidine HCl (Demerol CLINICAL RESOURCE NURSE) Q4PCA PRN IV SEVERE PAIN 8-10; Start 03/31/17 at 11:00; Stop 04/01/17 at 10:59 Oxycodone HCl (Roxicodone) 20 mg Q3H PRN PO PAIN LEVEL 8-10; Start 03/31/17 at 11:00 Oxycodone HCl (Roxicodone) 10 mg Q3H PRN PO PAIN LEVEL 4-7; Start 03/31/17 at 11:00 Oxycodone HCl (Roxicodone) 5 mg Q3H PRN PO PAIN LEVEL 1-3; Start 03/31/17 at 11:00 Zolpidem Tartrate (Ambien) 5 mg HS PRN PO INSOMNIA; Start 03/31/17 at 11:00 Ondansetron HCl 4 mg 4 mg Q6H IV Last administered on 03/31/17t 11:38; Admin Dose 4 MG; Start 03/31/17 at 11:00; Stop 04/01/17 at 05:01 Cefazolin Sodium (Ancef 1 Gm/50 ml (Pmx)) 50 ml @ 100 mls/hr Q8 IVPB ; Start 03/31/17 at 14:00; Stop 04/01/17 at 06:29 Miscellaneous Information (Note) NOTE XX ; Start 03/31/17 at 11:00 Aspirin (Ecotrin) 325 mg BID PO ; Start 04/01/17 at 09:00 Celecoxib (Celebrex) 200 mg BID PO ; Start 04/01/17 at 09:00 Dexamethasone (Decadron) 4 mg DAILY@07 IV ; Start 04/01/17 at 07:00; Stop at 06:59 Pantoprazole (Protonix Tab) 40 mg DAILY@06 PO ; Start 04/02/17 at 06:00 Docusate Sodium/ Ferrous Fumarate (Jean-Claude-Sequels) 1 tab BID PO ; Start at 09:00 Docusate Sodium (Colace) 200 mg BID PO ; Start 04/01/17 at 09:00; Stop at 08:59 Simethicone (Mylicon) 80 mg TID PRN PO DISTENSION/GAS/BLOATING; Start at 11:00 Senna/Docusate Sodium (Senokot-S) 2 tab BID PRN PO CONSTIPATION; Start at 11:00 Magnesium Hydroxide (Milk Of Mag) 30 ml HS PRN PO CONSTIPATION; Start at 11:00 Bisacodyl (Dulcolax Supp) 10 mg DAILY PRN PA CONSTIPATION; Start 03/31/17 at 11:00 Sodium Biphosphate/ Sodium Phosphate (Fleet Enema) 133 ml DAILY PRN PA CONSTIPATION; Start 03/31/17 at 11:00 Diphenhydramine HCl (Benadryl) 25 mg Q4H PRN IM ITCHING OR RASH; Start at 11:00 Ketorolac Tromethamine (Toradol) 15 mg Q6 PRN IV PAIN; Start 03/31/17 at 11:00 ; Stop 04/04/17 at 10:59 Naloxone HCl (Narcan) 0.2 mg Q2M PRN IV DECREASED REPIRATORY RATE; Start at 11:00 Naloxone HCl (Narcan) 0.2 mg Q2M PRN IV FOR RESP RATE 8 OR LESS; Start at 11:00 FABIAN CLIFFORD NP Mar 31, 2017 12:19
[2017-03-31] MEDS: DEXTROSE 5%-LR 1,000 ML IV SCH ×2 (12:32→23:37)
[2017-03-31] MEDS: CEFAZOLIN 1 GM/50 ML (PMX) 50 ML IVPB SCH ×2 (14:03→21:30)
[2017-03-31] MEDS ORDERED: HIP PAIN COCKTAIL VANCO INJ SCH ×7 (16:30)
[2017-03-31] MEDS ORDERED: HIP PAIN COCKTAIL (CEFUROXIME) INJ SCH ×7 (16:30)
[2017-03-31] MEDS: ATORVASTATIN 40 MG TAB PO SCH (21:31)
[2017-04-01] VITALS (7 sets, daily range): BP systolic 99–117; BP diastolic 53–59; PULSE 61–68; RESP 17–20
[2017-04-01] MEDS: ONDANSETRON 4 MG INJ IV SCH (05:00)
[2017-04-01 05:19] LABS: BASOPHILS % 0.1 % (0.0-2.0); EOSINOPHILS % 0.1 % (0.0-7.0); HEMATOCRIT 32.9 % (42.0-52.0); HEMOGLOBIN 10.6 g/dl (14.0-18.0); LYMPHOCYTES # 1.8 10^3/ul (0.8-2.9); LYMPHOCYTES % 16.9 % (15.0-51.0); MEAN CORPUSCULAR HEMOGLOBIN 29.7 pg (29.0-33.0); MEAN CORPUSCULAR HGB CONC 32.2 g/dl (32.0-37.0); MEAN CORPUSCULAR VOLUME 92.2 fl (82.0-101.0); MEAN PLATELET VOLUME 9.1 fl (7.4-10.4); MONOCYTE # 0.8 10^3/ul (0.3-0.9); MONOCYTES % 7.4 % (0.0-11.0); NEUTROPHIL # 8.1 10^3/ul (1.6-7.5); PLATELET COUNT 222 10^3/UL (140-415); RED BLOOD COUNT 3.57 10^6/ul (4.70-6.10); RED CELL DISTRIBUTION WIDTH 13.6 % (11.5-14.5); WHITE BLOOD COUNT 10.8 10^3/ul (4.8-10.8)
[2017-04-01 05:40] LABS: CALCIUM 7.5 mg/dl (8.4-10.2); CHOL/HDL RATIO 3.6 RATIO; CREATININE 0.98 mg/dl (0.61-1.24); MAGNESIUM 1.6 mg/dl (1.7-2.5); POTASSIUM 4.7 mmol/L (3.5-5.1)
[2017-04-01 06:08] LABS: THYROID STIMULATING HORMONE 0.501 MIU/L (0.465-4.680)
[2017-04-01] MEDS: CEFAZOLIN 1 GM/50 ML (PMX) 50 ML IVPB SCH (06:25)
[2017-04-01] MEDS: DEXAMETHASONE 4 MG/ML 1 ML INJ IV SCH (06:25)
--- NOTE | 2017-04-01 07:39 | PN ---
Date/Time of Note Date/Time of Note DATE: 04/01/17 TIME: 07:37 Assessment/Plan VTE Prophylaxis VTE Prophylaxis Intervention: ambulation, SCD's, other (Aspirin 325 mg) Lines/Catheters IV Catheter Type (from Nrsg): Peripheral IV Powell in Place (from Nrsg): No Assessment/Plan Assessment/Plan -Pain Meds as needed -Dressing is clean and intact. -OOB with PT -ASA/SCDs for DVT Prophylaxis -Continue monitoring with Internal Medicine -Patient Stable Subjective 24 Hr Interval Summary 61-year-old male postop day 1 status post left total knee arthroplasty. No acute events overnight. Denies any pain complaints. Patient has yet to initiate physical therapy as he experienced significant nausea and dizziness status post surgery. Denies any chest pain/tightness. Denies any shortness of breath. Denies any calf pain. Constitutional: no complaints Pain Control: well controlled Exam/Review of Systems Vital Signs Vitals Vital Signs Date Time Temp Pulse Resp B/P Pulse Ox O2 Delivery O2 Flow Rate FiO2 04/01/17 07:22 98.2 59 19 103/53 98 04/01/17 04:00 Nasal Cannula 2.0 Intake and Output 03/31/17 03/31/17 04/01/17 14:59 22:59 06:59 Intake Total 1416.33 ml 890 ml 1650 ml Output Total 100 ml 100 ml 1300 ml Balance 1316.33 ml 790 ml 350 ml Exam Free Text/Dictation -No complications with dressing intact. -5/5 Tibialis Anterior, EHL Gastrocnemius/Soleus and Peroneals -Patient able to actively flex up to 80 and fully extend today. 2 pillows are under the foot/ankle. -Normal Sensation -Palpable DP/PT, Capillary Refill <2 secs -No Distal Edema -Negative Heladio Sign/No calf pain -Toes Freely Movable Constitutional: alert, oriented, well developed Results Result Diagram: 04/01/17 0436 04/01/17 0436 PHYLLIS CUEVA PA-C Apr 01, 2017 07:39
[2017-04-01] MEDS: METOPROLOL (XL) 25 MG TAB PO SCH (09:00)
[2017-04-01] MEDS: LISINOPRIL 20 MG TAB PO SCH (09:00)
[2017-04-01] MEDS: ASPIRIN (EC) 325 MG TAB PO SCH ×2 (09:05→20:18)
[2017-04-01] MEDS: FERROUS FUMARATE (SR) TAB PO SCH ×2 (09:06→20:17)
[2017-04-01] MEDS: DOCUSATE SODIUM 100 MG CAP PO SCH ×2 (09:06→20:17)
[2017-04-01] MEDS: CELECOXIB 200 MG CAP PO SCH ×2 (09:06→20:17)
[2017-04-01] MEDS: DEXTROSE 5%-LR 1,000 ML IV SCH (13:00)
--- NOTE | 2017-04-01 13:13 | CONS ---
Date/Time of Note Date/Time of Note DATE: 04/01/17 TIME: 13:13 Assessment/Plan Assessment/Plan Chief Complaint/Hosp Course 61 year old male with a past medical history of bilateral osteoarthritis, right knee arthroplasty, hypertension, hypercholesterolemia, who was brought electively for left knee arthroplasty. 1. Osteoarthritis, bilateral knee. -Status post total left knee arthroplasty 03/31/2017 -Postoperative anticoagulation, pain control and weightbearing per surgery. 2. Essential hypertension. Stable. -Continue home medications 3. Hypercholesterolemia. -On statin 4. Anemia, likely chronic. H&H stable. Will monitor. 5. History of right total knee arthroplasty in June 2016. 6. Hypomagnesemia, mild. Replete and monitor. 7. Prediabetes, A1c 6.1. -Therapeutic lifestyle changes with healthy diet and weight reduction advised. Recommend repeat A1c in 6-8 weeks. DVT prophylaxis: SCDs and aspirin 325 mg twice daily per orthopedics Plan: Overall patient is doing well postoperatively. He is tolerating diet. Follow-up with surgery recommendations. Patient was seen in collaboration with Dr. Mendez. Problems: Consultation Date/Type/Reason Admit Date/Time Mar 31, 2017 at 05:57 Initial Consult Date Type of Consultation: Internal medicine Referring Provider: WHITNEY DUNN MD 24 HR Interval Summary Free Text/Dictation Patient doing well postoperatively. He has been up with physical therapy. Exam/Review of Systems Vital Signs Vitals Vital Signs Date Time Temp Pulse Resp B/P Pulse Ox O2 Delivery O2 Flow Rate FiO2 04/01/17 07:22 98.2 59 19 103/53 98 04/01/17 04:00 Nasal Cannula 2.0 Intake and Output 03/31/17 03/31/17 04/01/17 15:00 23:00 07:00 Intake Total 1416.33 ml 890 ml 1650 ml Output Total 100 ml 100 ml 1300 ml Balance 1316.33 ml 790 ml 350 ml Exam General: Well developed,adequately built, not in any acute distress . HEENT: Normocephalic, Atraumatic, No laceration or hematoma; Eyes: PEERL, Conjunctiva clear, Anicteric sclera Neck: Supple without any lymphadenopathy, nontender, no JVD, no carotid bruits, trachea midline, no thyromegaly Cardiac: S1, S2 auscultated, regular rhythm and rate, no mumurs or gallop Pulmonary: Normal respiratory effort. Chest clear to auscultation bilaterally, no adventitious breath sounds GI: Abdomen normal to inspection. Soft, non tender, non- distended, no masses, no rebound tenderness or guarding. Bowel sounds active on all four quadrants Genitourinary: Deferred Extremities: Left leg with surgical site/dry and intact dressing. Partial right 3rd &4th digits. No cyanosis, clubbing, or edema. Pulses [2+] bilaterally. Full ROM on all four extremities. No focal weakness appreciated. Neurologic: Alert to person, place, time, and situation. Affect appropriate, intact sensation. Skin: Clean,dry, and intact. No ecchymosis, no rashes, or lesions Results Result Diagram: 04/01/176 04/01/17 0436 Results 24 hrs Laboratory Tests Test 04/01/17 04:36 White Blood Count 10.8 # Red Blood Count 3.57 #L Hemoglobin 10.6 L Hematocrit 32.9 L Mean Corpuscular Volume 92.2 Mean Corpuscular Hemoglobin 29.7 Mean Corpuscular Hemoglobin Concent 32.2 Red Cell Distribution Width 13.6 Platelet Count 222 Mean Platelet Volume 9.1 Neutrophils % 75.0 Lymphocytes % 16.9 Monocytes % 7.4 Eosinophils % 0.1 Basophils % 0.1 Nucleated Red Blood Cells % 0.0 Neutrophils # 8.1 H Lymphocytes # 1.8 Monocytes # 0.8 Eosinophils # 0.0 Basophils # 0.0 Nucleated Red Blood Cells # 0.0 Sodium Level 137 Potassium Level 4.7 Chloride Level 103 Carbon Dioxide Level 28 Anion Gap 11 Blood Urea Nitrogen 18 Creatinine 0.98 Glucose Level 134 Hemoglobin A1c 6.1 H Calcium Level 7.5 L Magnesium Level 1.6 L Triglycerides Level 63 Cholesterol Level 125 LDL Cholesterol, Calculated 78 HDL Cholesterol 34 Cholesterol/HDL Ratio 3.6 Thyroid Stimulating Hormone (TSH) 0.501 Medications Medications Current Medications Ropivacaine/ Morphine Sulfate/ Clonidine/ Epinephrine/ Ketorolac Tromethamine/ Cefuroxime Sodium/ Sodium Chloride INTRA-OP INJ ; Start 03/31/17 at 16:30 Sodium Chloride 100 ml/Tranexamic Acid 1633 mg POST-OP IV ; Start 03/31/17 at 07:00 Dextrose/Lactated Ringer's (D5-Lr) 1,000 ml @ 80 mls/hr [id number] IV Last administered on 03/31/17 23:37; Admin Dose 80 MLS/HR; Start 03/31/17 at 12:00 Oxycodone HCl (Roxicodone) 20 mg Q3H PRN PO PAIN LEVEL 8-10; Start 03/31/17 at 11:00 Oxycodone HCl (Roxicodone) 10 mg Q3H PRN PO PAIN LEVEL 4-7; Start 03/31/17 at 11:00 Oxycodone HCl (Roxicodone) 5 mg Q3H PRN PO PAIN LEVEL 1-3; Start 03/31/17 at 11:00 Zolpidem Tartrate (Ambien) 5 mg HS PRN PO INSOMNIA; Start 03/31/17 at 11:00 Miscellaneous Information (Note) NOTE XX ; Start 03/31/17 at 11:00 Aspirin (Ecotrin) 325 mg BID PO Last administered on 04/01/17 09:05; Admin Dose 325 MG; Start 04/01/17 at 09:00 Celecoxib (Celebrex) 200 mg BID PO Last administered on 04/01/17 09:06; Admin Dose 200 MG; Start 04/01/17 at 09:00 Dexamethasone (Decadron) 4 mg DAILY@07 IV Last administered on 04/01/17 06:25 ; Admin Dose 4 MG; Start 04/01/17 at 07:00; Stop 04/04/17 at 06:59 Pantoprazole (Protonix Tab) 40 mg DAILY@06 PO ; Start 04/02/17 at 06:00 Docusate Sodium/ Ferrous Fumarate (Jean-Claude-Sequels) 1 tab BID PO Last administered on 04/01/17 09:06; Admin Dose 1 TAB; Start 04/01/17 at 09:00 Docusate Sodium (Colace) 200 mg BID PO Last administered on 04/01/17 09:06; Admin Dose 200 MG; Start 04/01/17 at 09:00; Stop 04/04/17 at 08:59 Simethicone (Mylicon) 80 mg TID PRN PO DISTENSION/GAS/BLOATING; Start at 11:00 Senna/Docusate Sodium (Senokot-S) 2 tab BID PRN PO CONSTIPATION; Start at 11:00 Magnesium Hydroxide (Milk Of Mag) 30 ml HS PRN PO CONSTIPATION; Start at 11:00 Bisacodyl (Dulcolax Supp) 10 mg DAILY PRN [place] CONSTIPATION; Start 03/31/17 at 11:00 Sodium Biphosphate/ Sodium Phosphate (Fleet Enema) 133 ml DAILY PRN [place] CONSTIPATION; Start 03/31/17 at 11:00 Diphenhydramine HCl (Benadryl) 25 mg Q4H PRN IM ITCHING OR RASH; Start at 11:00 Ketorolac Tromethamine (Toradol) 15 mg Q6 PRN IV PAIN; Start 03/31/17 at 11:00 ; Stop 04/04/17 at 10:59 Naloxone HCl (Narcan) 0.2 mg Q2M PRN IV DECREASED REPIRATORY RATE; Start at 11:00 Naloxone HCl (Narcan) 0.2 mg Q2M PRN IV FOR RESP RATE 8 OR LESS; Start at 11:00 Atorvastatin Calcium (Lipitor) 40 mg QHS PO Last administered on 03/31/17t 21: 31; Admin Dose 40 MG; Start 03/31/17 at 21:00 Lisinopril (Zestril) 20 mg DAILY PO ; Start 04/01/17 at 09:00 Metoprolol Succinate (Toprol Xl) 25 mg DAILY PO ; Start 04/01/17 at 09:00 FABIAN CLIFFORD NP Apr 01, 2017 13:13
[2017-04-01] MEDS: oxyCODONE 5 MG TAB PO PRN ×2 (13:51→17:31)
[2017-04-01] MEDS ORDERED: MAGNESIUM SULFATE 2 GM/50 ML 50 ML IVPB ONE (14:30)
[2017-04-01] MEDS: ATORVASTATIN 40 MG TAB PO SCH (20:18)
[2017-04-02 02:09] VITALS: BP 118/61; RESP 18
[2017-04-02] MEDS ORDERED: PANTOPRAZOLE (EC) 40 MG TAB PO SCH (06:00)
[2017-04-02] MEDS: DEXAMETHASONE 4 MG/ML 1 ML INJ IV SCH (06:30)
--- NOTE | 2017-04-02 08:29 | PN ---
Date/Time of Note Date/Time of Note DATE: 04/02/17 TIME: 08:24 Assessment/Plan VTE Prophylaxis VTE Prophylaxis Intervention: ambulation, SCD's, other (Aspirin 325 mg) Lines/Catheters IV Catheter Type (from Nrsg): Saline Lock Powell in Place (from Nrsg): No Assessment/Plan Assessment/Plan -Pain Meds as needed -Kerlix and David wrap removed today to alleviate any possible pressure to the peroneal nerve. 4 x 4 gauze, David wrap and foam tape applied. Area was cleaned with 2 Steri-Strips reapplied to the distal surgical wound prior to dressing the wound. Dr. Mejia-Rad made aware. -OOB with PT -ASA/SCDs for DVT Prophylaxis -Continue monitoring with Internal Medicine -Patient Stable Subjective 24 Hr Interval Summary 61-year-old male postop day 2 status post left total knee arthroplasty. Patient was discovered to have foot drop while performing physical therapy. Patient denies any pain complaints at the current time. Has Kerlix wrap as well as David wrap wrapped around the knee with [facility] therapy. Denies any chest pain/tightness or shortness of breath. Patient was up and walking 80 feet with physical therapy yesterday. Denies any overnight acute events. Pain Control: well controlled Exam/Review of Systems Vital Signs Vitals Vital Signs Date Time Temp Pulse Resp B/P Pulse Ox O2 Delivery O2 Flow Rate FiO2 04/02/17 02:09 97.9 59 18 118/61 99 04/01/17 13:55 Room Air 04/01/17 04:00 2.0 Intake and Output 04/01/17 04/01/17 04/02/17 15:00 23:00 07:00 Intake Total 160 ml 1060 ml 700 ml Output Total 1800 ml 800 ml Balance 160 ml -740 ml -100 ml Exam Free Text/Dictation -After dressing was removed, bleeding from distal surgical site. No signs of any infection to the wound. -5/5 Tibialis Anterior, EHL Gastrocnemius/Soleus and Peroneals -Patient is able to flex up to 60 today. Able to achieve full extension. -Foot drop to the left foot. Patient is able to vera, invert and plantarflex the foot foot dorsiflexion was not able to be achieved on active range of motion. -Palpable DP/PT, Capillary Refill <2 secs -No Distal Edema -Negative Heladio Sign/No calf pain -Toes Freely Movable Constitutional: alert, oriented, well developed Results Result Diagram: 04/01/17 0436 04/01/17 0436 PHYLLIS CEUVA PA-C Apr 02, 2017 08:29
[2017-04-02 08:31] VITALS: BP 143/69; RESP 18
[2017-04-02 08:45] LABS: BASOPHILS % 0.2 % (0.0-2.0); EOSINOPHILS # 0.1 10^3/ul (0.0-0.5); EOSINOPHILS % 0.7 % (0.0-7.0); HEMATOCRIT 32.6 % (42.0-52.0); HEMOGLOBIN 10.7 g/dl (14.0-18.0); LYMPHOCYTES # 2.1 10^3/ul (0.8-2.9); MEAN CORPUSCULAR HEMOGLOBIN 30.1 pg (29.0-33.0); MEAN CORPUSCULAR HGB CONC 32.8 g/dl (32.0-37.0); MEAN CORPUSCULAR VOLUME 91.8 fl (82.0-101.0); MEAN PLATELET VOLUME 8.9 fl (7.4-10.4); MONOCYTE # 0.7 10^3/ul (0.3-0.9); MONOCYTES % 6.4 % (0.0-11.0); NEUTROPHIL # 7.4 10^3/ul (1.6-7.5); NEUTROPHILS % 72.2 % (39.0-77.0); PLATELET COUNT 196 10^3/UL (140-415); RED BLOOD COUNT 3.55 10^6/ul (4.70-6.10); RED CELL DISTRIBUTION WIDTH 13.9 % (11.5-14.5); WHITE BLOOD COUNT 10.3 10^3/ul (4.8-10.8)
[2017-04-02] MEDS ORDERED: traMADol 50 MG TAB PO PRN (09:00)
[2017-04-02] MEDS: ASPIRIN (EC) 325 MG TAB PO SCH ×2 (09:01→20:18)
[2017-04-02] MEDS: DOCUSATE SODIUM 100 MG CAP PO SCH ×2 (09:01→20:17)
[2017-04-02] MEDS: METOPROLOL (XL) 25 MG TAB PO SCH (09:01)
[2017-04-02] MEDS: FERROUS FUMARATE (SR) TAB PO SCH ×2 (09:02→20:17)
[2017-04-02] MEDS: CELECOXIB 200 MG CAP PO SCH ×2 (09:02→20:18)
[2017-04-02] MEDS: LISINOPRIL 20 MG TAB PO SCH (09:02)
--- NOTE | 2017-04-02 10:16 | PN ---
Date/Time of Note Date/Time of Note DATE: 04/02/17 TIME: 10:13 Assessment/Plan Lines/Catheters IV Catheter Type (from Nrsg): Saline Lock Powell in Place (from Nrsg): No Assessment/Plan Chief Complaint/Hosp Course Will order AFO. Patient will work with physical therapy. I discussed left foot drop with nurse present at bedside. He had previous injury to left ankle with weakness of dorsiflexion. He will go home today and follow up as outpatient within 10-14 days. Problems: Subjective 24 Hr Interval Summary Pain is controlled. Patient working with physical therapy. Exam/Review of Systems Vital Signs Vitals Vital Signs Date Time Temp Pulse Resp B/P Pulse Ox O2 Delivery O2 Flow Rate FiO2 04/02/17 08:31 98.3 57 18 143/69 97 04/01/17 13:55 Room Air 04/01/17 04:00 2.0 Intake and Output 04/01/17 04/01/17 04/02/17 15:00 23:00 07:00 Intake Total 160 ml 1060 ml 700 ml Output Total 1800 ml 800 ml Balance 160 ml -740 ml -100 ml Exam Free Text/Dictation Left Knee: Incision is clean and dry. No drainage. calf soft , negative homans. 5/5 Gs. 1/ 5 TA. Results Result Diagram: 04/02/17 0834 04/01/17 0436 WHITNEY DUNN MD Apr 02, 2017 10:16
--- NOTE | 2017-04-02 13:43 | CONS ---
Date/Time of Note Date/Time of Note DATE: 04/02/17 TIME: 13:41 Assessment/Plan Assessment/Plan Chief Complaint/Hosp Course 61 year old male with a past medical history of bilateral osteoarthritis, right knee arthroplasty, hypertension, hypercholesterolemia, who was brought electively for left knee arthroplasty. 1. Osteoarthritis, bilateral knee. -Status post total left knee arthroplasty 03/31/2017 -Postoperative anticoagulation, pain control and weightbearing per surgery. 2. Essential hypertension. Stable. -Continue home medications 3. Hypercholesterolemia. -On statin 4. Anemia, likely chronic. H&H stable. Will monitor. 5. History of right total knee arthroplasty in June 2016. 6. Prediabetes, A1c 6.1. -Therapeutic lifestyle changes with healthy diet and weight reduction advised. Recommend repeat A1c in 6-8 weeks. DVT prophylaxis: SCDs and aspirin 325 mg twice daily per orthopedics Plan: Overall patient is doing well postoperatively. He is tolerating diet. Patient is cleared for discharge from orthopedics. Agree with discharge plan. Recommend continuation of home medications. Also recommended on healthy diet and diet reduction for prediabetes. Patient to follow-up with primary care physician and recommend repeat A1c next 4-6 weeks. Patient was seen in collaboration with Dr. Mendez. Problems: Consultation Date/Type/Reason Admit Date/Time Mar 31, 2017 at 05:57 Type of Consultation: Internal medicine Referring Provider: WHITNEY DUNN MD 24 HR Interval Summary Free Text/Dictation Patient is doing well. He is for discharge today. Exam/Review of Systems Vital Signs Vitals Vital Signs Date Time Temp Pulse Resp B/P Pulse Ox O2 Delivery O2 Flow Rate FiO2 04/02/17 08:31 98.3 57 18 143/69 97 04/01/17 13:55 Room Air 04/01/17 04:00 2.0 Intake and Output 04/01/17 04/01/17 04/02/17 14:59 22:59 06:59 Intake Total 160 ml 1060 ml 700 ml Output Total 1800 ml 800 ml Balance 160 ml -740 ml -100 ml Exam General: Well developed,adequately built, not in any acute distress . HEENT: Normocephalic, Atraumatic, No laceration or hematoma; Eyes: PEERL, Conjunctiva clear, Anicteric sclera Neck: Supple without any lymphadenopathy, nontender, no JVD, no carotid bruits, trachea midline, no thyromegaly Cardiac: S1, S2 auscultated, regular rhythm and rate, no mumurs or gallop Pulmonary: Normal respiratory effort. Chest clear to auscultation bilaterally, no adventitious breath sounds GI: Abdomen normal to inspection. Soft, non tender, non- distended, no masses, no rebound tenderness or guarding. Bowel sounds active on all four quadrants Genitourinary: Deferred Extremities: Left leg with surgical site/dry and intact dressing. Partial right 3rd &4th digits. No cyanosis, clubbing, or edema. Pulses [2+] bilaterally. Full ROM on all four extremities. No focal weakness appreciated. Neurologic: Alert to person, place, time, and situation. Affect appropriate, intact sensation. Skin: Clean,dry, and intact. No ecchymosis, no rashes, or lesions Results Result Diagram: 04/02/17 0834 04/01/17 0436 Results 24 hrs Laboratory Tests Test 04/02/17 08:34 White Blood Count 10.3 Red Blood Count 3.55 L Hemoglobin 10.7 L Hematocrit 32.6 L Mean Corpuscular Volume 91.8 Mean Corpuscular Hemoglobin 30.1 Mean Corpuscular Hemoglobin Concent 32.8 Red Cell Distribution Width 13.9 Platelet Count 196 Mean Platelet Volume 8.9 Neutrophils % 72.2 Lymphocytes % 20.0 Monocytes % 6.4 Eosinophils % 0.7 Basophils % 0.2 Nucleated Red Blood Cells % 0.0 Neutrophils # 7.4 Lymphocytes # 2.1 Monocytes # 0.7 Eosinophils # 0.1 Basophils # 0.0 Nucleated Red Blood Cells # 0.0 Medications Medications Current Medications Zolpidem Tartrate (Ambien) 5 mg HS PRN PO INSOMNIA; Start 03/31/17 at 11:00 Miscellaneous Information (Note) NOTE XX ; Start 03/31/17 at 11:00 Aspirin (Ecotrin) 325 mg BID PO Last administered on 04/02/17 09:01; Admin Dose 325 MG; Start 04/01/17 at 09:00 Celecoxib (Celebrex) 200 mg BID PO Last administered on 04/02/17 09:02; Admin Dose 200 MG; Start 04/01/17 at 09:00 Dexamethasone (Decadron) 4 mg DAILY@07 IV Last administered on 04/02/17 06:30 ; Admin Dose 4 MG; Start 04/01/17 at 07:00; Stop 04/04/17 at 06:59 Pantoprazole (Protonix Tab) 40 mg DAILY@06 PO Last administered on 04/02/17 06:30; Admin Dose 40 MG; Start 04/02/17 at 06:00 Docusate Sodium/ Ferrous Fumarate (Jean-Claude-Sequels) 1 tab BID PO Last administered on 04/02/17 09:02; Admin Dose 1 TAB; Start 04/01/17 at 09:00 Docusate Sodium (Colace) 200 mg BID PO Last administered on 04/02/17 09:01; Admin Dose 200 MG; Start 04/01/17 at 09:00; Stop 04/04/17 at 08:59 Simethicone (Mylicon) 80 mg TID PRN PO DISTENSION/GAS/BLOATING; Start at 11:00 Senna/Docusate Sodium (Senokot-S) 2 tab BID PRN PO CONSTIPATION; Start at 11:00 Magnesium Hydroxide (Milk Of Mag) 30 ml HS PRN PO CONSTIPATION; Start at 11:00 Bisacodyl (Dulcolax Supp) 10 mg DAILY PRN [place] CONSTIPATION; Start 03/31/17 at 11:00 Sodium Biphosphate/ Sodium Phosphate (Fleet Enema) 133 ml DAILY PRN [place] CONSTIPATION; Start 03/31/17 at 11:00 Diphenhydramine HCl (Benadryl) 25 mg Q4H PRN IM ITCHING OR RASH; Start at 11:00 Ketorolac Tromethamine (Toradol) 15 mg Q6 PRN IV PAIN; Start 03/31/17 at 11:00 ; Stop 04/04/17 at 10:59 Naloxone HCl (Narcan) 0.2 mg Q2M PRN IV DECREASED REPIRATORY RATE; Start at 11:00 Naloxone HCl (Narcan) 0.2 mg Q2M PRN IV FOR RESP RATE 8 OR LESS; Start at 11:00 Atorvastatin Calcium (Lipitor) 40 mg QHS PO Last administered on 04/01/17 20: 18; Admin Dose 40 MG; Start 03/31/17 at 21:00 Lisinopril (Zestril) 20 mg DAILY PO Last administered on 04/02/17 09:02; Admin Dose 20 MG; Start 04/01/17 at 09:00 Metoprolol Succinate (Toprol Xl) 25 mg DAILY PO Last administered on 09:01; Admin Dose 25 MG; Start 04/01/17 at 09:00 Tramadol HCl (Ultram) 50 mg Q6H PRN PO PAIN; Start 04/02/17 at 09:00; Stop at 08:59 FABIAN CILFFORD V. [employer] Apr 02, 2017 13:43
[2017-04-02 17:08] VITALS: BP 133/68; RESP 18
[2017-04-02] MEDS: ATORVASTATIN 40 MG TAB PO SCH (20:18)
[2017-04-02] MEDS ORDERED: hydrALAzine 20 MG INJ IV ONE (20:30)
[2017-04-02 21:10] VITALS: BP 143/70; PULSE 64; RESP 18
== END 2017-04-02 21:30 | disposition home health service (06) | DRG 470 ==
LOC: REC 05:57 → MS1 11:42
PROVIDERS: ADMIT Orthopaedic Surgery Adult Reconstructive Orthopaedic Surgery; ATTEND Orthopaedic Surgery Adult Reconstructive Orthopaedic Surgery
PROC: 0SRD0J9 Replacement of Left Knee Joint with Synthetic Substitute, Cemented, Open Approach (ICD-10-PCS; principal; 2017-04-01)
DX: M17.12 Unilateral primary osteoarthritis, left knee (principal); E83.42 Hypomagnesemia; I10 Essential (primary) hypertension; E78.00 Pure hypercholesterolemia, unspecified; Z96.651 Presence of right artificial knee joint; D63.8 Anemia in other chronic diseases classified elsewhere; R73.03 Prediabetes; M21.372 Foot drop, left foot; Z87.891 Personal history of nicotine dependence
CPT/HCPCS: 73560; 80048; 80061; 83036; 83735; 84443; 85025; 86850; 86900; 86901; 86920; 88304; 88311; 97116; 97161; 97166; 97530; J0131; J0171; J0360; J0690; J0697; J0735; J1100; J1885; J2250; J2274; J2405; J2795; J3010; J3370; J3475; J7121

== ENCOUNTER → 2017-04-15 | Outpatient (CLI) | payer OTHER ==
[~2017-04-15] MED LIST changes: -ASPI325T32 PO; +ATOR40TA68 PO; -GABA100C PO; -HYDR-905 PO; -LISI10TA2 PO; +LISI20TA11 PO; -PANT40TA4 PO; -TRAM50TA2 PO; -calcium
--- NOTE | 2017-04-15 14:09 | PN ---
Date/Time of Note Date/Time of Note DATE: 04/15/17 TIME: 14:00 Outpatient Progress Note Chief Complaint Two-week postoperative appointment status post left total knee replacement HPI 61-year-old male presents today for postoperative appointment status post left total knee arthroplasty performed on 03/31/2017. Since the surgery patient states that his pain has been well controlled with postoperative pain medication. He continues taking aspirin 325 mg for DVT prophylaxis but does state that he has GI pain while taking. Denies any chest pain/tightness, shortness of breath or calf pain. Patient has been up and moving with assistance using front wheeled walker. Denies any falls or injury since he was discharged from the hospital. Patient is continued with home PT and is ready to initiate outpatient physical therapy. Review of Systems Const: No Fever, no chills, no Fatigue, normal appetite, no diaphoresis. Resp: No SOB, no wheezing, no chest pain. CV: No chest pain, no palpitaions, no CURRIE. Physical Exam Height 5 foot 5 inches, weight 180 pounds General Appearance: well-developed, well-nourished, in no acute distress. Left knee: Surgical scar to the left knee continues to heal well. No signs of any infection. Steri-Strips remain in place. Mild to moderate swelling status post surgery. No tenderness to palpation on exam today.There is about 15-20 lag from full extension with active extension but on passive range of motion full extension is achieved without pain. Patient is able to actively flex up to 90 today. Seated comfortably with knees remaining at 90. Negative Homans sign. Normal sensory examination to light touch. Peroneal nerve is firing as patient is able to achieve some dorsiflexion with some give way weakness. Footdrop continues to improve. Patient is able to perform full plantar flexion with 5/5 resistance. Assisted ambulation with front wheeled walker. Imaging X-ray of the Left knee performed on 04/15/2017 showing all components appearing well aligned, attached and integrated to the bone. No signs of any lucency between metal and bone. Allergies Coded Allergies: No Known Allergy (Unverified , 03/31/17) Family Hx Patient History: Patient reports no known family medical history. Assessment/Plan Problems: (1) Status post left knee replacement * Prilosec 20 mg 1 tab p.o. daily provided today to prevent GI pain all taking aspirin. * Continue aspirin 325 mg as instructed. Continue taking [place] as needed for pain. * Prescription for outpatient physical therapy provided today with focus on flexion, extension, strengthening as well as Gait training. * Postsurgical instructions reiterated today. Patient advised that while resting, keep 2-3 pillows directly under the foot/ankle only. Patient may sleep with AFO brace for dropfoot at night. Continue working on dorsiflexion/ plantar flexion as there is already been some improvement with adventist of function. * In regards to surgical wound, patient made aware that Steri-Strips will fall off on their own. Do not peel off Steri-Strips as they will naturally fall. No signs of infection on exam today. * Patient will follow-up 6 weeks from surgery date. Patient made aware that should he spirits any complications, he may follow-up sooner for repeat evaluation. Patient was also seen by Dr. Raymundo today. Medications Home Meds Reported Medications Atorvastatin* (Atorvastatin*) 40 Mg Tablet, 40 MG PO QHS, #30 TAB 03/31/17 Lisinopril* (Lisinopril*) 20 Mg Tablet, 20 MG PO DAILY, #30 TAB 03/31/17 Metoprolol Succinate* (Toprol XL*) 25 Mg Tab.sr.24h, 25 MG PO DAILY, #30 TAB 06/16/16 PHYLLIS CUEVA PA-C Apr 15, 2017 14:09
--- NOTE | 2017-04-15 21:38 | RADRPT ---
PROCEDURE: Left knee radiographs. CLINICAL INDICATION: Left knee pain. Postop. TECHNIQUE: Three views. Weight bearing. Frontal, lateral, and patellar view. COMPARISON: 03/31/2017. FINDINGS: There is no fracture or dislocation. The soft tissues are normal. There is a total left knee arthroplasty which appears satisfactory. There is no lytic or blastic lesion. IMPRESSION: 1. Satisfactory postoperative appearance of the left knee. RPTAT: QQ .Oswaldo Cole MD, MD Date Time Electronically viewed and signed by .Oswaldo Cole MD, MD on 04/15/2017 21:38 .R/
== END | disposition home or self-care (01) ==
LOC: HKI 13:28
PROVIDERS: ATTEND Orthopaedic Surgery Adult Reconstructive Orthopaedic Surgery
DX: Z09 Encounter for follow-up examination after completed treatment for conditions other than malignant neoplasm (principal); Z96.652 Presence of left artificial knee joint; Z79.82 Long term (current) use of aspirin

== ENCOUNTER → 2017-05-13 | Outpatient (CLI) | END | disposition home or self-care (01) ==

== ENCOUNTER → 2017-06-15 | Outpatient (CLI) | END | disposition home or self-care (01) ==

== ENCOUNTER → 2017-09-09 | Outpatient (CLI) | END | disposition home or self-care (01) ==

== ENCOUNTER → 2017-12-09 | Outpatient (CLI) | END | disposition home or self-care (01) ==

== ENCOUNTER → 2018-02-21 | Outpatient (CLI) | END | disposition home or self-care (01) ==

== ENCOUNTER → 2018-04-04 | Outpatient (CLI) | END | disposition home or self-care (01) ==

== ENCOUNTER 2018-07-22 00:51 | Emergency (ER) | payer OTHER ==
[~2018-07-22] VITALS: Ht 165.1 cm; Wt 81.0 kg
[~2018-07-22 00:51] MED LIST changes: +LISI-471 PO; -LISI20TA11 PO
[2018-07-22 00:55] VITALS: Ht 165.1 cm; Wt 81.0 kg
--- NOTE | 2018-07-22 01:23 | ERD ---
ER Documentation Chief Complaint Chief Complaint SOB HPI The patient is a 62-year-old male, presenting to the ER because of acute dyspnea for 1 day, denies similar symptoms previously, complains of intermittent cough, nausea but no vomiting, constipation. He denies fever, chills, neck pain, chest pain, abdominal pain, dysuria. He does not smoke nor drink Past medical history: Dyslipidemia, hypertension, anxiety ROS All systems reviewed and are negative except as per history of present illness. Medications Home Meds Reported Medications Lisinopril* (Lisinopril*) 40 Mg Tablet, 40 MG PO DAILY, #30 TAB 07/22/18 Ibuprofen* (Ibuprofen*) 600 Mg Tablet, 600 MG PO Q6H PRN for PAIN LEVEL 6-10, TAB 07/22/18 Chlorthalidone* (Chlorthalidone*) 25 Mg Tablet, 25 MG PO DAILY 07/22/18 Metoprolol Succinate* (Toprol XL*) 25 Mg Tab.sr.24h, 25 MG PO DAILY, #30 TAB 06/16/16 Discontinued Reported Medications Atorvastatin* (Atorvastatin*) 40 Mg Tablet, 40 MG PO QHS, #30 TAB 03/31/17 Lisinopril* (Lisinopril*) 20 Mg Tablet, 20 MG PO DAILY, #30 TAB 03/31/17 Allergies Allergies: Coded Allergies: No Known Allergy (Unverified , 03/31/17) PMhx/Soc History of Surgery: Yes (RT KNEE REPLACEMENT, LT KNEE SURGERY,RT HAND,MEDINA SHOULDER) Anesthesia Reaction: No Hx Neurological Disorder: No Hx Respiratory Disorders: No Hx Cardiac Disorders: Yes (HTN) Hx Psychiatric Problems: No Hx Miscellaneous Medical Probl: Yes (OA, HTN, R TKR, R hand sx, b/l shoulder sx) Hx Alcohol Use: No Hx Substance Use: No Hx Tobacco Use: Yes (QUIT) Smoking Status: Former smoker Physical Exam Vitals Vital Signs Date Temp Pulse Resp B/P (MAP) Pulse Ox O2 O2 Flow FiO2 Time Delivery Rate 07/22/18 55 16 111/64 96 Room Air 05:03 (80) 07/22/18 54 13 124/72 98 Room Air 04:00 (89) 07/22/18 64 21 144/73 100 Room Air 01:21 (96) 07/22/18 97.4 74 18 181/88 99 00:55 (119) Physical Exam Const: No acute distress. Head: Atraumatic. Eyes: Normal Conjunctiva. ENT: Normal External Ears, Nose and Mouth. Neck: Full range of motion. No meningismus. Resp: Clear to auscultation bilaterally. Cardio: Regular rate and rhythm. Abd: Soft, non distended, normal bowel sounds, non tender. Skin: No petechiae or rashes. Back: No midline or flank tenderness. Ext: No cyanosis, or edema. Neur: Awake and alert. No focal deficit Psych: Normal Mood and Affect. Result Diagram: 07/22/18 0159 07/22/18 015 Results 24 hrs Laboratory Tests Test 07/22/18 01:59 White Blood Count 8.6 10^3/ul Red Blood Count 4.63 10^6/ul Hemoglobin 13.8 g/dl Hematocrit 41.7 % Mean Corpuscular Volume 90.1 fl Mean Corpuscular Hemoglobin 29.8 pg Mean Corpuscular Hemoglobin Concent 33.1 g/dl Red Cell Distribution Width 13.5 % Platelet Count 291 10^3/UL Mean Platelet Volume 8.9 fl Immature Granulocytes % 0.500 % Neutrophils % 49.5 % Lymphocytes % 41.1 % Monocytes % 7.3 % Eosinophils % 1.4 % Basophils % 0.2 % Nucleated Red Blood Cells % 0.0 /100WBC Immature Granulocytes # 0.040 10^3/ul Neutrophils # 4.3 10^3/ul Lymphocytes # 3.6 10^3/ul Monocytes # 0.6 10^3/ul Eosinophils # 0.1 10^3/ul Basophils # 0.0 10^3/ul Nucleated Red Blood Cells # 0.0 10^3/ul Prothrombin Time 12.6 Sec Prothrombin Time Ratio 1.0 INR International Normalized Ratio 0.93 Activated Partial Thromboplast Time 27.4 Sec D-Dimer > 65282.00 ng/ml Sodium Level 140 mmol/L Potassium Level 3.8 mmol/L Chloride Level 97 mmol/L Carbon Dioxide Level 31 mmol/L Anion Gap 12 Blood Urea Nitrogen 18 mg/dl Creatinine 1.21 mg/dl Est Glomerular Filtrat Rate mL/min > 60 mL/min Glucose Level 113 mg/dl Calcium Level 8.3 mg/dl Troponin I < 0.012 ng/ml B-Type Natriuretic Peptide 65 PG/ML Current Medications Medications Dose Sig/Lesvia Start Time Status Last (Trade) Ordered Route PRN Stop Time Admin Dose Reason Admin Sodium 100 ml @ ud STK-MED 07/22/18 DC Chloride ONCE .ROUTE 04:02 07/22/18 04:03 Iohexol 150 ml STK-MED 07/22/18 DC (Omnipaque ONCE .ROUTE 04:02 07/22/18 300mg/ ml) 04:03 Procedures/MDM EKG: Read by emergency physician Rate/Rhythm: Normal Sinus Rhythm 79 beats/min QRS, ST, T-waves: No ST elevation, no T inversion, SA, prolong QT Impression: Abnormal EKG [place] [id number] Radiology Main Line: [phone] DIAGNOSTIC IMAGING REPORT Patient: MICHELLE CAVANAUGH : 1955 Age: 62 Sex: M MR #: [id number] DOS: 07/22/18 0146 Ordering MD: CASSIA PROCTOR MD Location: E/R Room/Bed: PROCEDURE: Chest. CLINICAL INDICATION: Shortness of breath. TECHNIQUE: Single frontal view of the chest was obtained. COMPARISON: 12/24/2014. FINDINGS: The cardiac silhouette is within normal limits. The aortic arch is calcified. There is no focal consolidation, vascular congestion or pleural effusion. There is no pneumothorax. IMPRESSION: No evidence for active cardiopulmonary disease. Aortic atherosclerosis. .Tashi Kunz MD, MD Date Time Electronically viewed and signed by .Tashi Kunz MD, on 07/22/2018 02:57 .T/ CC: CASSIA PROCTOR MD [id number] [place] [id number] Radiology Main Line: [phone] DIAGNOSTIC IMAGING REPORT Patient: MICHELLE CAVANAUGH : 1955 Age: 62 Sex: M MR #: [id number] DOS: 07/22/18 0336 Ordering MD: CASSIA PROCTOR MD Location: E/R Room/Bed: PROCEDURE: CT Angiography Chest With Intravenous Contrast CLINICAL INDICATION: Shortness of breath TECHNIQUE: Axial computed tomographic angiography images of the chest with intravenous contrast using pulmonary embolism protocol. Sagittal and coronal reformatted images were created and reviewed. CTDIvol (mGy) = <71.19 mGy>; total DLP (mGy- cm) = <617.16 mGy.cm> This CT exam was performed using one or more of the following dose reduction techniques: automated exposure control, adjustment of the mA and/or kV according to patient size, and/or use of iterative reconstruction technique. DICOM images are available. MIP reconstructed images were created and reviewed. CONTRAST: 100 mL of Omnipaque-300 was administered intravenously. COMPARISON: None FINDINGS: PULMONARY ARTERIES: No evidence for pulmonary embolus. AORTA: Atherosclerotic change of the thoracic aorta. No evidence for aneurysm or dissection. Atherosclerotic change of the visualized abdominal aorta without upper abdominal aortic aneurysm is seen. CELIAC TRUNK: Mild stenosis of the proximal celiac artery. LUNGS: Dependent atelectasis of the lungs is seen. 4 mm nodule is seen in the lingula. No other nodules are seen. PLEURAL SPACE: Unremarkable No significant effusion. No pneumothorax. HEART: Cardiomegaly. Atherosclerotic calcification of the coronary arteries. No significant pericardial effusion. No evidence of RV dysfunction. BONES/JOINTS: Mild degenerative change of the spine. Degenerative change of the shoulders. SOFT TISSUES: Unremarkable LYMPH NODES: Unremarkable No enlarged lymph nodes. STOMACH AND BOWEL: Mild wall prominence of the distal stomach may be due to under-distension. OTHER FINDINGS: IMPRESSION: 1. No evidence for pulmonary embolus or aortic dissection. 2. Dependent atelectasis of the lungs is seen. 4 mm nodule is seen in the lingula. No other nodules are seen. In low-risk patients (minimal or absent history of smoking or other known risk factors), no follow-up is necessary. For high-risk patients (history of smoking or other known risk factors), an optional chest CT at 12 months could be performed. RPTAT: HLBE Simran Edna, Physician Date Time Electronically viewed and signed by Simran Bishop Physician on 07/22/2018 05:44 LE/ CC: CASSIA PROCTOR MD [id number] MEDICAL MAKING DECISION: The patient is a 62-year-old male, presenting with ac [place] dyspnea of unclear etiology, left lung nodule, is stable for outpatient follow-up The differential diagnoses considered include but are not limited to asthma, COPD, pneumonia, pulmonary embolus, pleural effusion, congestive heart failure. Departure Diagnosis: Primary Impression: Shortness of breath Additional Impression: Lung nodule Condition: Good Comments I discussed the findings with the patient. I advised the patient to follow-up with the primary physician the fire alarm technician Dr. Dey in about 2-3 days, sooner if needed and return if any concern. Disclaimer: Inadvertent spelling and grammatical errors are likely due to EHR/dictation software use and do not reflect on the overall quality of patient care. Also, please note that the electronic time recorded on this note does not necessarily reflect the actual time of the patient encounter. CASSIA PROCTOR MD Jul 22, 2018 01:23
[2018-07-22] MEDS ORDERED: SOD CHLORIDE 0.9% 100 ML ONE (04:02)
[2018-07-22] MEDS ORDERED: IOHEXOL 300MG/ML 150 ML BTL ONE (04:02)
[2018-07-22] MEDS ORDERED: IBUP-1542 PO (04:22)
[2018-07-22] MEDS ORDERED: CHLO25TA2 PO (04:22)
[2018-07-22] MEDS ORDERED: LISI40TA3 PO (04:24)
[2018-07-22 06:11] VITALS: BP 136/86; PULSE 60; RESP 16
== END 2018-07-22 06:22 | disposition home or self-care (01) ==
LOC: E/R 00:51
DX: R06.02 Shortness of breath (principal); I10 Essential (primary) hypertension; R91.1 Solitary pulmonary nodule; Z96.651 Presence of right artificial knee joint; Z87.891 Personal history of nicotine dependence
CPT/HCPCS: 36415; 71045; 71275; 80048; 83880; 84484; 85025; 85378; 85610; 85730; 93005; 99285; Q9967

== ENCOUNTER 2018-12-26 04:45 | Emergency (ER) | payer OTHER ==
[~2018-12-26] VITALS: Ht 162.6 cm; Wt 83.5 kg
[~2018-12-26 04:45] MED LIST changes: -ATOR40TA68 PO; +CHLO25TA2 PO; +IBUP-1542 PO; -LISI-471 PO; +LISI40TA3 PO
[2018-12-26 04:52] VITALS: Ht 162.6 cm; Wt 83.5 kg
--- NOTE | 2018-12-26 05:13 | ERD ---
ER Documentation Chief Complaint Chief Complaint HEADACHE, WEAK XTODAYS; HX OF HTN; NO NEURO DEFECITS HPI 63-year-old gentleman who presents to the emergency room with generalized weakness. The patient describes at least several months of feeling this way. He states that his blood pressure is been elevated in the 150 range consistently over this timeframe despite compliance with medications. He recently decreased his blood pressure medication. Occasionally he has body pains that occasionally include left-sided chest discomfort that is nonexertional, transient and not present currently. He denies any shortness of breath, nausea or vomiting. Otherwise he states that he just has mild generalized malaise. No fevers or ch ills or cough. Again no chest pain with on the past 24 hours. ROS All systems reviewed and are negative except as per history of present illness. Medications Home Meds Reported Medications Lisinopril* (Lisinopril*) 40 Mg Tablet, 40 MG PO DAILY, #30 TAB 07/22/18 Ibuprofen* (Ibuprofen*) 600 Mg Tablet, 600 MG PO Q6H PRN for PAIN LEVEL 6-10, TAB 07/22/18 Chlorthalidone* (Chlorthalidone*) 25 Mg Tablet, 25 MG PO DAILY 07/22/18 Metoprolol Succinate* (Toprol XL*) 25 Mg Tab.sr.24h, 25 MG PO DAILY, #30 TAB 06/16/16 Allergies Allergies: Coded Allergies: No Known Allergy (Unverified , 03/31/17) PMhx/Soc History of Surgery: Yes (RT KNEE REPLACEMENT, LT KNEE SURGERY,RT HAND,MEDINA SHOULDER) Anesthesia Reaction: No Hx Neurological Disorder: No Hx Respiratory Disorders: No Hx Cardiac Disorders: Yes (HTN) Hx Psychiatric Problems: No Hx Miscellaneous Medical Probl: Yes (OA, HTN, R TKR, R hand sx, b/l shoulder sx) Hx Alcohol Use: No Hx Substance Use: No Hx Tobacco Use: Yes (QUIT) Smoking Status: Never smoker FmHx Family History: No diabetes Physical Exam Vitals Vital Signs Date Temp Pulse Resp B/P (MAP) Pulse Ox O2 O2 Flow FiO2 Time Delivery Rate 12/26/18 Nasal 05:13 Cannula 12/26/18 97.0 79 20 170/81 96 Room Air 05:01 (110) 12/26/18 97.0 59 19 179/82 95 04:52 (114) Physical Exam General: Well developed, well nourished, no acute distress Head: Normocephalic, atraumatic. Eyes: Pupils equally reactive, EOM intact ENT: Moist mucous membranes Neck: Supple, no lymphadenopathy Respiratory: Lungs clear bilaterally, no distress Cardiovascular: RRR, no murmurs, rubs, or gallops Abdominal: Soft, non-tender, non-distended, no peritoneal signs : Deferred MSK: No edema, no unilateral swelling, 5/5 strength Neurologic: Alert and oriented, moving all extremities, normal speech, no focal weakness, no cerebellar signs Skin: No rash Psych: Normal mood Result Diagram: 12/26/1812 12/26/18 0512 Results 24 hrs Laboratory Tests Test 12/26/18 05:12 White Blood Count 7.2 10^3/ul Red Blood Count 4.88 10^6/ul Hemoglobin 14.4 g/dl Hematocrit 44.6 % Mean Corpuscular Volume 91.4 fl Mean Corpuscular Hemoglobin 29.5 pg Mean Corpuscular Hemoglobin Concent 32.3 g/dl Red Cell Distribution Width 13.2 % Platelet Count 269 10^3/UL Mean Platelet Volume 8.7 fl Immature Granulocytes % 0.300 % Neutrophils % 54.7 % Lymphocytes % 37.9 % Monocytes % 5.7 % Eosinophils % 1.0 % Basophils % 0.4 % Nucleated Red Blood Cells % 0.0 /100WBC Immature Granulocytes # 0.020 10^3/ul Neutrophils # 3.9 10^3/ul Lymphocytes # 2.7 10^3/ul Monocytes # 0.4 10^3/ul Eosinophils # 0.1 10^3/ul Basophils # 0.0 10^3/ul Nucleated Red Blood Cells # 0.0 10^3/ul Sodium Level 138 mmol/L Potassium Level 4.1 mmol/L Chloride Level 101 mmol/L Carbon Dioxide Level 30 mmol/L Anion Gap 7 Blood Urea Nitrogen 14 mg/dl Creatinine 0.98 mg/dl Est Glomerular Filtrat Rate mL/min > 60 mL/min Glucose Level 130 mg/dl Calcium Level 8.2 mg/dl Troponin I Pending Procedures/MDM EKG, MONITORS, & DIAGNOSTIC IMAGING: EKG: I reviewed and interpreted a 12-lead EKG. Rhythm: Normal sinus rhythm ST Changes: No contiguous ST segment elevations T waves: No contiguous T wave inversions Impression: No evidence of acute cardiac ischemia Chest x-ray: I reviewed and interpreted a 1 view of the chest Mediastinum: No enlargement Cardiac silhouette: No cardiomegaly Airspace: Clear lung carter bilaterally without evidence of pneumothorax Bones: No evidence of fracture LAB INTERPRETATION: I reviewed the laboratory testing and it shows no evidence of acute process MEDICAL DECISION MAKING: The patient has underlying essential hypertension that is likely poorly cont rolled. His clinical exam history and presentation did not seem to be consistent with acute exacerbation or hypertensive emergency. No signs or symptoms concerning for stroke, acute coronary syndrome. Patient will benefit from laboratory testing to rule out underlying anemia or renal insufficiency given prolonged elevated blood pressure. Patient likely needs titration of his blood pressure medications. Again the patient has not had any chest pain recently that would suggest acute coronary syndrome or necessitate the need for serial enzymes in the emergency room setting. Reassurance was provided. Outpatient follow-up strongly recommended. ER COURSE: * Labs and imaging reassuring, safe for DC with PMD follow up. CONSULTATION: None DISPOSITION PLAN: The patient does not have an identifiable emergent medical condition that warrants inpatient hospitalization at this time. The patient is deemed safe for discharge with outpatient follow-up. We discussed follow up with the patient's primary care doctor within 24 to 48 hours as needed. We also discussed return to the emergency room for worsening symptoms or worsening condition. Outpatient referral: None required Discharge Medications: None required Departure Diagnosis: Primary Impression: Generalized weakness Additional Impression: Essential hypertension Condition: Stable SUZANNE CAPONE MD Dec 26, 2018 05:13
[2018-12-26 06:13] VITALS: BP 151/81; PULSE 84; RESP 18
== END 2018-12-26 06:13 | disposition home or self-care (01) ==
LOC: E/R 04:45
DX: R53.1 Weakness (principal); I10 Essential (primary) hypertension; Z87.891 Personal history of nicotine dependence; Z96.651 Presence of right artificial knee joint
CPT/HCPCS: 36415; 71045; 80048; 84484; 85025; 93005